=== PATIENT | female | born 1950 | race Caucasian/White ===

== ENCOUNTER → 2017-05-20 08:21 | Outpatient (CLI) | payer MEDICARE ==
[2011-03-01 06:15] VITALS: BMI 24.2
[~2017-05-20 08:21] MED LIST: ASPIRIN EC81 M1 PO; BREO ELLIPTA 21 EACH; CALAN SR240 MG PO; COMBIVENT RESPIM4 GM INH; DIOVAN HCT 320/1 TAB PO; GLEEVEC100 MG PO; METOPROLOL TAR100 M1 PO; NORMODYNE / TR300 MG PO; OMEPRAZOLE20 M1 PO; PLAQUENIL200 MG PO; PLAVIX75 MG PO
[2017-07-13 09:57] VITALS: BMI 25.9
== END | disposition home or self-care (01) ==
LOC: D.CT 05-19 08:30
DX: I10 Essential (primary) hypertension (principal)

== ENCOUNTER 2017-06-06 10:49 | Outpatient (CLI) | payer MEDICARE ==
[~2017-06-06] VITALS: Ht 152.4 cm; Wt 57.7 kg
--- NOTE | ~2017-06-06 | HEMODYNAMI ---
PATIENT:NANCY MAR MEDICAL RECORD: [id number] : 54 LOCATION:[facility] ADMISSION DATE: 06/06/17 Generatedon:06/06/201714:28 Patient name: NANCY MAR Patient #: [id number] SSN: : 1950 Date of study: 06/06/2017 Page: Of Hemodynamic Procedure Report Patient Data Patient Demographics Procedure consent was obtained First Name: NANCY Gender: Female Last Name: ZAID : 1950 Middle Initial: J Age: 66 year(s) Patient #: [id number] Race: Unknown Additional ID: [id number] Contact details [address]: [address] [place] [address] State: [place] City: [place] Zip code: [address] Past Medical History Allergies Allergen Reaction Date Comments Reported Other allergy 06/06/2017 SULFA, CODEINE Admission Admission Data Admission Date: 06/06/2017 Admission Time: 10:49 Height (in.): 5 BSA: 0.25 (m2) Height (cm.): 12.7 BMI: 3571.59 (kg/m2) Weight (lbs.): 127 Weight (kg.): 57.61 Lab Results Lab Result Date: 06/06/2017 Lab Result Time: 0:00 Biochemistry Name Units Result Min Max BUN mg/dl 16 --(---*)-- 7 18 Creatinine mg/dl 0.7 --(*---)-- 0.6 1.3 CBC Name Units Result Min Max Hemoglobin g/dl 13.4 -*(----)-- 13.5 17.5 Procedure Procedure Types Cath Procedure Diagnostic Procedure C [facility] w/Coronaries Sedation Charges Moderate Sedation up to 30 minutes PCI Procedure Coronary Stent Coronary Stent Initial Peripheral Cath Diagnostic Procedure Cath Peripheral Dufzg-Znyslkq-Rio-Off Procedure Description Procedure Date Procedure Date: 06/06/2017 Procedure Start Time: 13:55 Procedure End Time: 14:26 Procedure Staff Name Function Joe Gavin MD Performing Physician Domi Guzman RT Monitor Elliot Viera RN Nurse Erica Horton RT Scrub Procedure Data Cath Procedure Fluoroscopy Diagnostic fluoroscopy Total fluoroscopy Time: 4.9 time: 4.9 min min Diagnostic fluoroscopy Total fluoroscopy dose: 349 dose: 349 mGy mGy Contrast Material Contrast Material Type Amount (ml) Isovue 300 147 Entry Location Entry Primary Successful Side Size Upsize Upsize Entry Closure Succes sful Closure Location (Fr) 1 (Fr) 2 (Fr) Remarks Device Remarks Femoral Left 5 Fr 6 Fr Exoseal artery Short Estimated blood loss: 10 ml Diagnostic catheters Device Type Used For End Catheter Placement MULTIPACK JL 4.0 5Fr Left Coronary catheter Angiography MULTIPACK 3DRC 5Fr Right Coronary catheter Angiography MULTIPACK Pigtail 5 Fr LV Angiography catheter MULTIPACK Pigtail 5 Fr Abdominal catheter aortogram with runoff Procedure Complications No complications Procedure Medications Medication Administration Route Dosage Oxygen NC 2 l/min Heparin Flush Bag added to field 2 bags (1000units/500ml NS) 0.9% NaCl I.V. 100 ml/hr Fentanyl I.V. 50 mcg Versed I.V. 1 mg Fentanyl I.V. 50 mcg Versed I.V. 1 mg Fentanyl I.V. 50 mcg Versed I.V. 1 mg Fentanyl I.V. 50 mcg Heparin Bolus I.V. 6000 units Brilinta P.O. 180 mg Hemodynamics Rest BSA: 0.25 (m2) HGB: 13.4 (g/dl) O2 Consumption: Estimated: 23.53 (ml/min) O2 Con sumption indexed: Estimated:94.12 (ml/min/m) Heart Rate: 71 (bpm) Pressure Samples Time Site Value (mmHg) Purpose Heart Use Rate(bpm) 14:02 LV 165/5,20 EDP 70 14:03 AO 148/66(95) Pullback 73 14:03 LV 150/6,21 Pullback 73 Gradients Valve Time Site 1 Site 2 Mean SEP/DFP Peak To Heart Use (mmHg) (sec/min) Peak Rate (mmHg) (bpm) Aortic 14:03 LV AO 11 20 2 73 150/6,21 148/66(95) Calculations Valve P-P Mean Valve Index Valve Source Name Gradient Area Flow (cm2) Aortic 2 11 2 11 Snapshots Pre Cath Intra NCS Post Cath Vital Signs Time Heart Resp SPO2 etCO2 NIBP (mmHg) Rhythm Pain Sedation Rate (ipm) (%) (mmHg) Status Level (bpm) 13:38:14 75 15 100 10.3 214/79(128) NSR 0 (11) 10(A) , No pain 13:43:17 65 15 100 9.6 215/82(166) NSR 0 (11) 9(A) , No pain 13:48:10 64 16 97 0 153/64(110) NSR 0 (11) 9(A) , No pain 13:57:43 66 17 82 0 144/58(87) NSR 0 (11) 9(A) , No pain 14:02:26 69 17 89 8.8 112/66(102) NSR 0 (11) 9(A) , No pain 14:07:41 72 16 96 1.4 131/69(90) NSR 0 (11) 9(A) , No pain 14:12:24 68 15 99 9.6 115/55(100) NSR 0 (11) 9(A) , No pain 14:17:07 72 17 99 8.1 114/46(101) NSR 0 (11) 9(A) , No pain 14:22:28 76 16 100 3.6 155/63(107) NSR 0 (11) 10(A) , No pain Medications Time Medication Route Dose Verified Delivered Reason Notes Effectiveness by by 13:39:08 Oxygen NC 2 Joe Elliot Per physician l/min Romaine Viera RN 13:39:17 Heparin Flush added 2 Joe Elliot used for Bag to bags Romaine Viera ice cream freezer helper (1000units/500ml field NS) 13:39:26 0.9% NaCl I.V. 100 Joe Elliot Per physician ml/hr Romaine Viera RN 13:40:45 Fentanyl I.V. 50 Joe Elliot for sedation mcg Romaine Viera RN 13:40:52 Versed I.V. 1 mg Joe Elliot for sedation Romaine Viera RN 13:51:21 Fentanyl I.V. 50 Joe Elliot for sedation mcg Romaine Viera RN 13:51:25 Versed I.V. 1 mg Joe Elliot for sedation Romaine Viera RN 13:54:00 Fentanyl I.V. 50 Joe Elliot for sedation mcg Romaine Viera RN 13:57:06 Versed I.V. 1 mg Joe Zarate for sedation Romaine Viera RN 14:09:37 Fentanyl I.V. 50 Joe Zarate for sedation [facility] Romaine Viera RN 14:11:20 Heparin Bolus I.V. 6000 Joe Zarate for units Romaine Viera RN anticoagulation 14:27:21 Brilinta P.O. 180 Joe Zarate for mg Romaine Viera RN antiplatelet therapy Procedure Log Time Note 12:53:30 Patient Height : 5 inches 12:53:33 Patient Weight : 127 lbs 12:53:53 Patient allergic to Other allergySULFA, CODEINE 12:54:33 Lab Result : BUN 16 mg/dl 12:54:33 Lab Result : Creatinine 0.7 mg/dl 12:54:33 Lab Result : Hemoglobin 13.4 g/dl 13:10:36 Erica Horton RT(R) sent for patient. Start room use. 13:20:14 Time tracking: Regular hours 13:20:18 Plan of Care:Hemodynamics will remain stable., Cardiac rhythm will remain stable., Comfort level will be maintained., Respiratory function will remain adequate., Patient/ family verbilizes understanding of procedure., Procedure tolerated without complication., Recovers from procedure without complications.. 13:23:40 Patient received from Pre/Post Procedure Room to CCL 1 Alert and oriented. Tansferred to table in Supine position. 13:23:41 Warm blankets applied, and lino hugger turned on for patient comfort. 13:23:41 Correct patient and procedure confirmed by team. 13:23:42 Signed procedure consent form obtained from patient. 13:23:43 ECG and BP/O2 sat monitors applied to patient. 13:23:44 Full Disclosure recording started 13:36:18 Vital chart was started 13:36:21 Rhythm: sinus rhythm 13:36:30 H&P Date Dictated: 05/27/2017 Within 30 days and on chart., H&P Addendum completed by physician on day of procedure. (MUST COMPLETE FOR ALL OUTPATIENTS). 13:36:32 Pre-procedure instructions explained to patient. 13:36:32 Pre-op teaching completed and patient verbalized understanding. 13:36:34 Family in patients room. 13:36:40 Patient NPO since Midnight. 13:36:48 Is the patient allergic to Iodine/contrast media? No. 13:36:50 Is patient on blood thinner?No 13:36:52 Patient diabetic? No. 13:36:54 Previous problem with sedation/anesthesia? No ? 13:36:56 Snore? No 13:36:57 Sleep apnea? No 13:36:58 Deviated septum? No 13:36:58 Opens mouth fully? Yes 13:36:59 Sticks out tongue? Yes 13:37:01 Airway obstruction? No ? 13:37:03 Dentures? No ? 13:37:08 Pre procedure: right dorsailis pedis pulse 1+ Palpable, but thready & weak; easily obliterated 13:37:11 Pre procedure: left dorsailis pedis pulse 2+ Normal; easily identifiable; not easily obliterated 13:37:14 Patient pain scale 0/10 ?. 13:37:25 IV patent on arrival in left hand with 0.9% NaCl at [facility]. 13:37:27 Lab results completed and on chart. 13:37:44 Bilateral groins area was prepped with chlora-prep and draped in sterile fashion 13:37:45 Alarms reviewed by R. N. 13:37:45 Sharps counted by scrub and verified by R.N. 13:37:48 Use device set Femoral Dx 13:37:48 ACIST Syringe (10677) opened to sterile field. 13:37:49 Bag Decanter (2002) opened to sterile field. 13:37:49 Medline Cath Pack ([id number]) opened to sterile field. 13:37:50 DIAGNOSTIC WIRE .035 260cm J wire (860537) opened to sterile field. 13:37:54 ACIST Hand Control (32014) opened to sterile field. 13:37:54 ACIST Manifold (72801) opened to sterile field. 13:37:55 DIAGNOSTIC Multipack 5Fr catheter set (ON1779) opened to sterile field. 13:37:56 Tegaderm 4 x 4 (1626W) opened to sterile field. 13:37:56 PERCUTANEOUS ENTRY 19GA needle opened to sterile field. 13:39:08 Oxygen 2 l/min NC was administered by Elliot Viera RN; Per physician; 13:39:17 Heparin Flush Bag (1000units/500ml NS) 2 bags added to field was administered by Elliot Viera RN; used for procedure; 13:39:26 0.9% NaCl 100 ml/hr I.V. was administered by Elliot Viera RN; Per physician; :39:26 SHEATH 5Fr Prelude ([id number]) opened to sterile field. 13:40:26 Final Timeout: patient, procedure, and site verified with staff and physician. All members of the team are in agreement. 13:40:28 Right groin site verified by team. 13:40:30 Physical assessment completed. ASA score P 2 - A patient with mild systemic disease as per Joe Gavin MD. 13:40:33 Sedation plan: IV Moderate Sedation Medication:Versed, Fentanyl 13:40:45 Fentanyl 50 mcg I.V. was administered by Elliot Viera RN; for sedation; 13:40:52 Baseline sample Acquired. 13:40:52 Versed 1 mg I.V. was administered by Elliot Viera RN; for sedation; 13:46:47 Zero performed for pressure channel P1 13:51:21 Fentanyl 50 mcg I.V. was administered by Elliot Viera RN; for sedation; 13:51:25 Versed 1 mg I.V. was administered by Elliot Viera RN; for sedation; 13:54:00 Fentanyl 50 mcg I.V. was administered by Elliot Viera RN; for sedation; 13:54:17 Procedure started. 13:55:18 Local anesthetic to left femerol artery with Lidocaine 2% by Joe Gavin MD.INITIAL ACCESS ONLY 13:56:39 A 5 Fr sheath was inserted into the Left Femoral artery 13:57:06 Versed 1 mg I.V. was administered by Elliot Viera RN; for sedation; 13:57:28 A MULTIPACK JL 4.0 5Fr catheter was advanced over the wire and used for Left Coronary Angiography. 14:00:10 Catheter removed. 14:00:16 A MULTIPACK 3DRC 5Fr catheter was advanced over the wire and used for Right Coronary Angiography. 14:01:38 Catheter removed. 14:01:47 A MULTIPACK Pigtail 5 Fr catheter was advanced over the wire and used for LV Angiography. 14:03:02 LV gram done using PADRON 14:03:05 Injector settings: Ml/sec: 10, Volume: 20, 14:03:06 LV hemodynamics recorded. 14:03:10 EF : 60 % 14:03:33 Catheter removed. 14:03:45 A MULTIPACK Pigtail 5 Fr catheter was advanced over the wire and used for Abdominal aortogram with runoff. 14:07:18 Use device set GAVIN PCI 14:07:20 SHEATH 6FR Satanta (KHS400) opened to sterile field. 14:07:23 BMW 300cm Ash 2 J wire ([id number]) opened to sterile field. 14:07:25 GUIDE 6FR XBLAD 3.5 catheter ([id number]) opened to sterile field. 14:07:32 Catheter removed. 14:09:13 Sheath upsized to a 6 Fr Short. 14:09:31 6 Fr XBLAD 3.5 guide catheter was inserted over the wire 14:09:37 Fentanyl 50 mcg I.V. was administered by Elliot Viera RN; for sedation; 14:10:03 TUBING High Pressure Extension Tubing (Agency Spotter) ([id number]) opened to sterile field. 14:11:20 Heparin Bolus 6000 units I.V. was administered by Elliot Viera RN; for anticoagulation; 14:12:25 BMW wire advanced. 14:16:27 Inflation Number: 1 A INTEGRITY OTW 3.0 X 15 stent ([id number]) was prepped and advanced across the Mid LAD. The stent was deployed at 13 KARLEE for 0:32 (min:sec). 14:18:13 Stent catheter was removed intact over wire. 14:18:14 Wire removed. 14:18:15 Guide catheter removed. 14:18:25 Sheath removed intact; hemostasis achieved with Exoseal to the Left Femoral artery. 14:18:28 EXOSEAL 6Fr (EX600) opened to sterile field. 14:18:31 Procedure ended.(Physican Out) 14:18:44 Fluoroscopy time 04.90 minutes. 14:18:48 Flurop Dose total: 349 14:18:48 Fluoroscopy dose: 349 mGy 14:18:51 Contrast amount:Isovue 300 147ml. 14:18:57 Sharps counted by scrub and verified by R.N. 14:18:58 Insertion/operative site no bleeding no hematoma. 14:19:31 Post-op/insertion site Left Femoral artery dressed using a 4 x 4 and Tegaderm. 14:19:36 Post left femerol artery:stable, clean and dry 14:19:49 Post Procedure Pulses reassessed and unchanged 14:19:51 Post-procedure physical assessment completed. ASA score P 2 - A patient with mild systemic disease as per Joe Gavin MD. 14:19:53 Post procedure rhythm: unchanged. 14:19:58 Estimated blood loss: 10 ml 14:19:59 Post procedure instruction explained to patient.Patient verbalizes understanding. 14:20:00 Patient needs reinforcement of post procedure teaching. 14:20:13 Procedure type changed to Cath procedure, Diagnostic procedure, LHC, LHC w/Coronaries, Sedation Charges, Moderate Sedation up to 30 minutes, PCI procedure, Coronary Stent, Coronary Stent Initial, Peripheral Cath Diagnostic Procedure, Cath Peripheral, Ydgou-Hjeyxby-Ogg-Off 14:20:18 Procedure Complication : No complications 14:25:53 Procedure and supply charges have been captured, reviewed, submitted and are correct. 14:25:54 See physician's report for complete and final results. 14:25:56 Vital chart was stopped 14:25:58 Report given to Pre/Post Procedure Room. 14:26:01 Patient transfered to Pre/Post Procedure Room with Stretcher. 14:26:08 Procedure ended. 14:26:08 Full Disclosure recording stopped 14:26:12 End room use (Document Last) 14:27:21 Brilinta 180 mg P.O. was administered by Elliot Viera RN; for antiplatelet therapy; Intervention Summary Intervention Notes Time ActionType Lesion and Equipment Action# Pressure Duration Attributes Used 14:16:27 Place stent Mid LAD INTEGRITY 1 13 00:32 OTW 3.0 X 15 stent ([id number]) Device Usage Item Name Manufacture Quantity Catalog Hospital Part Current Minimal Lot# / Number Charge Number Stock Stock Serial# Code ACIST Acist 1 27317 486806 744873 678124 20 Syringe Medical (25774) Systems Inc Bag Decanter Microtek 1 158947 16039 625345 5 () Medical Inc. Medline Cath Cardinal 1 [id number] 642876 55209 135709 5 Brandwatch ([id number]) DIAGNOSTIC St Nic 1 002919 118074 758837 571308 30 WIRE .035 260cm J wire (169042) ACIST Hand Acist 1 35431 955505 186206 530034 5 Control Medical (41751) Systems Inc ACIST Acist 1 23922 709941 313340 832921 5 Manifold Medical (74634) Systems Inc DIAGNOSTIC Cardinal 1 NL2625 040103 35945 056919 30 Multipack Health 5Fr catheter set (JE5084) Tegaderm 4 x 3M 1 1626W 871757 233577 561794 5 4 (1626W) PERCUTANEOUS Cook Medical 1 S12141 780861 939399 5 ENTRY 19GA needle SHEATH 5Fr Merit 1 [id number] 065726 297143 202419 5 Prelude Medical ([id number]) MULTIPACK JL Cardinal 1 918251 5 4.0 5Fr Health catheter MULTIPACK Cardinal 1 843262 5 3DRC 5Fr Health catheter MULTIPACK Cardinal 1 126449 5 Pigtail 5 Fr Health catheter SHEATH 6FR Terumo 1 QMN048 489656 993239 665356 40 Satanta (WJX282) BMW 300cm Darden 1 [id number] 055361 003753 721402 5 Ash 2 Vascular J wire ([id number]) GUIDE 6FR Cardinal 1 [id number] 340796 417613 173916 10 XBLAD 3.5 Health catheter (47456746) TUBING High Merit 1 [id number] 197431 77889 932011 10 Pressure Medical Extension Tubing (Gavin) ([id number]) INTEGRITY Medtronic 1 [id number] 281474 615009 1 [id number] OTW 3.0 X 15 stent ([id number]) EXOSEAL 6Fr Cardinal 1 EX600 832008 395280 575602 10 (EX600) Health Signature Audit [place] Stage Time Signature Unsigned Intra-Procedure 06/06/2017 Domi 2:28:31 PM Counts RT(R) Signatures Monitor : Domi Signature : Counts RT Date : Time : [place] [id number] [place] [address]
[2017-06-06] MEDS ORDERED: PLAQUENIL200 MG PO (11:09)
[2017-06-06] MEDS ORDERED: OMEPRAZOLE20 M1 PO (11:09)
[2017-06-06] MEDS ORDERED: COMBIVENT RESPIM4 GM INH (11:10)
[2017-06-06] MEDS ORDERED: DIOVAN HCT 320/1 TAB PO (11:11)
[2017-06-06] MEDS ORDERED: CALAN SR240 MG PO (11:11)
[2017-06-06] MEDS ORDERED: METOPROLOL TAR100 M1 PO (11:11)
[2017-06-06] MEDS ORDERED: GLEEVEC100 MG PO (11:12)
[2017-06-06 11:26] VITALS: BP 215/78; Ht 152.4 cm; Wt 57.7 kg
[2017-06-06 12:04] LABS: BASOPHILS 0.4 % (0-2); EOSINOPHILS 1.2 % (0-7); HEMATOCRIT 39.6 % (36.0-48.0); HEMOGLOBIN 13.4 g/dL (12-16); IMMATURE GRANULOCYTES 0.2 % (0-5); MCH 32.1 pg (26.0-34.0); MCHC 33.8 g/dL (31.0-37.0); MCV 94.7 fL (80.0-100.0); MEAN PLATELET VOLUME 11.1 fL (7.4-10.4); MONOCYTES 8.9 % (2-11); NEUTROPHILS 59.3 % (40-80); RBC 4.18 10x6/uL (4.00-5.40); RDW 12.8 % (11.5-14.5); WBC 4.8 10x3/uL (4.8-10.8)
[2017-06-06 12:07] LABS: PLATELET COUNT 221 10x3/uL (130-400)
[2017-06-06 12:14] LABS: CALC OSMOLALITY 279 mosm/kg (275-300); CALCIUM 8.9 mg/dL (8.5-10.1); CARBON DIOXIDE 28.2 mmol/L (21.0-32.0); CHLORIDE - SERUM 102 mmol/L (98-107); CREATININE - SERUM 0.7 mg/dL (0.6-1.3); GLUCOSE 97 mg/dL (74-106); SODIUM 140 mmol/L (136-145); UREA NITROGEN 16 mg/dL (7-18); eGFR NON AFRICAN AMERICAN 89 mL/min (90-120)
[2017-07-11] MEDS ORDERED: NORMODYNE / TR300 MG PO (11:01)
[2017-07-11] MEDS ORDERED: GLEEVEC100 MG PO (11:02)
[2017-07-11] MEDS ORDERED: BREO ELLIPTA 21 EACH (11:05)
[2017-07-11] MEDS ORDERED: COMBIVENT RESPIM4 GM INH (11:06)
[2017-07-11] MEDS ORDERED: ASPIRIN EC81 M1 PO (11:07)
[2017-07-11] MEDS ORDERED: PLAVIX75 MG PO (11:08)
== END 2017-06-06 17:10 | disposition home or self-care (01) ==
LOC: D.CATH 10:49
PROVIDERS: Internal Medicine Cardiovascular Disease
DX: I25.119 Atherosclerotic heart disease of native coronary artery with unspecified angina pectoris (principal); I70.219 Atherosclerosis of native arteries of extremities with intermittent claudication, unspecified extremity; I10 Essential (primary) hypertension; Z01.812 Encounter for preprocedural laboratory examination

== ENCOUNTER 2017-07-12 05:00 | Inpatient (IN) | payer MEDICARE, OTHER ==
[2017-07-11 12:05] LABS: BASOPHILS 0.7 % (0-2); EOSINOPHILS 2.5 % (0-7); HEMATOCRIT 40.1 % (36.0-48.0); HEMOGLOBIN 13.5 g/dL (12-16); LYMPHOCYTES 34.8 % (15-50); MCH 32.5 pg (26.0-34.0); MCHC 33.7 g/dL (31.0-37.0); MCV 96.4 fL (80.0-100.0); MEAN PLATELET VOLUME 10.2 fL (7.4-10.4); MONOCYTES 7.8 % (2-11); NEUTROPHILS 54.2 % (40-80); PLATELET COUNT 263 10x3/uL (130-400); RBC 4.16 10x6/uL (4.00-5.40); RDW 13.4 % (11.5-14.5); WBC 4.3 10x3/uL (4.8-10.8)
[2017-07-11 12:20] LABS: ALKALINE PHOSPHATASE 82 U/L (46-116); ALT (SGPT) 49 U/L (10-68); CALC OSMOLALITY 277 mosm/kg (275-300); CALCIUM 8.7 mg/dL (8.5-10.1); CARBON DIOXIDE 29.4 mmol/L (21.0-32.0); CHLORIDE - SERUM 104 mmol/L (98-107); CREATININE - SERUM 0.7 mg/dL (0.6-1.3); GLUCOSE 89 mg/dL (74-106); POTASSIUM - SERUM 3.7 mmol/L (3.5-5.1); SODIUM 140 mmol/L (136-145); UREA NITROGEN 12 mg/dL (7-18); eGFR NON AFRICAN AMERICAN 89 mL/min (90-120)
[2017-07-11 12:22] LABS: APPEARANCE CLEAR (CLEAR); BILIRUBIN NEGATIVE (NEGATIVE); COLOR YELLOW (YELLOW); GLUCOSE NEGATIVE (NEGATIVE); KETONE NEGATIVE (NEGATIVE); NITRITE NEGATIVE (NEGATIVE); PROTEIN NEGATIVE (NEGATIVE); UROBILINOGEN NORMAL (NORMAL)
[2017-07-11 12:24] LABS: BACTERIA MODERATE /hpf (NONE SEEN); EPITHELIAL CELLS 0-5 /hpf (0-5); MUCUS <1+ /lpf (NONE SEEN); WHITE CELLS - URINE 0-5 /hpf (0-5)
[2017-07-11 12:38] LABS: INR 1.08 (0.85-1.17); PROTIME 13.6 SECONDS (11.6-15.0)
[2017-07-11 12:39] LABS: APTT 26.6 SECONDS (22.8-39.4)
[~2017-07-12] VITALS: Ht 152.4 cm; Wt 60.3 kg
[2017-07-12] VITALS (51 sets, daily range): BP systolic 113–233; BP diastolic 41–89; BMI 24.6; BMI 26.0
--- NOTE | ~2017-07-12 | OP ---
PATIENT NAME: NANCY MAR MEDICAL RECORD: [id number] :54 LOCATION:D.CVI D.CV02 ADMISSION DATE:07/12/17 SURGEON: JORDAN HA MD DATE OF OPERATION: 07/12/2017 SURGEON: Jordan Ha MD CONSUMER SALES REPRESENTATIVE: ROCHELLE Gallo OPERATION PERFORMED: 1. Right femoral cutdown. 2. Left common femoral artery ultrasound access, micropuncture. 3. Right iliac angioplasty. 4. Bilateral iliac stents. 5. Aortogram with runoff. 6. Percutaneous closure, left femoral artery with Angio-Seal. 7. Left iliac angiogram. 8. Primary closure, right common femoral artery. PREOPERATIVE DIAGNOSES: Bilateral iliac and distal aortic stenosis, symptomatic. POSTOPERATIVE DIAGNOSES: Bilateral iliac and distal aortic stenosis, symptomatic. ANESTHESIA: General endotracheal anesthesia. ESTIMATED BLOOD LOSS: 20 cc. SPECIMENS: None. COMPLICATIONS: None. CONDITION: Stable. DISPOSITION: CV ICU. OPERATIVE FINDINGS: 1. Cutdown on the right common femoral artery which had circumferential plaque starting at about the mid vessel and extending down into the superficial femoral artery, superficial femoral and 2 large profunda branches were encircled and the proximal extent of the dissection went up to behind the inguinal ligament to allow proximal control, at the access site, this was a relatively normal vessel about 6 mm in size. 2. Ultrasound access of the left common femoral artery without difficulty using micropuncture technique and a ProGlide was placed, but was not deployed as we could not get good blood return, presumably due to the small vessel size on the left. At the conclusion of the case, this side was closed with an Angio-Seal and a completion angiogram revealed no stenosis. 3. Wire accessed easily through the common iliac on the right. Sequential dilators passed in the external iliac to 14-[place] and then balloon angioplasty, first with a 7-mm, then 8 mm right iliac, but unable to pass the AFX system through the right. 4. Procedure converted to bilateral iliac stents using covered 8 and 7 x 38 mm stents deployed without difficulty, simultaneously and bilaterally. OPERATIVE REPORT [id number] ZAIDNANCY Sanchez 5. Aortogram with good seating and good runoff aspirating the sheaths on both sides. 6. Percutaneous closure of the left aorta and left iliac angiogram. 7. Primary closure on the right. 8. Good Doppler posterior tibial and dorsalis pedis bilaterally. OPERATIVE INDICATION: Claudication. PROCEDURE NOTE IN DETAIL: The patient was brought to the operating suite. General anesthesia was obtained. Cutdown made in the right groin crease, taken down to the artery, which was dissected out with vessels and circled on the left. Percutaneous access was obtained with ultrasound guidance. Heparin was given, after heparin had circulated, the right groin was also accessed and a sheath was placed. Procedure as above with first placement of a wire, then sequential dilators and then 7, but the AFX would not pass, then an 8 and the AFX still would not pass on the right. Therefore, procedure converted to bilateral iliac stenting and 8 x 38 iCAST and 7 x 38 on the left deployed easily. Good flow when aspirating the sheaths, which at that point were 8 on the right and a 7 on the left. Pigtail then moved to the left and switched for a soft wire after the previous stiff wire and the left side closed with an Angio-Seal. Good flow on the completion angiogram. Devices removed from the right and primary interrupted closure. Good flow noted, thorough irrigation. Marcaine applied. Three layer closure. Dermabond on the skin. Good Doppler pulses into the CV ICU in good condition. TRANSINT:[id number] Voice Confirmation ID: [id number] DOCUMENT ID: [id number] JORDAN HA MD at 1620 CC: LING PHAM M.D. [id number] DICTATION DATE: 07/12/17 1148 TECHNOLOGIST INFECTIOUS DISEASE: 07/12/17 1258 DIS IN 07/13/17 [facility] [address] [place] [address]
[2017-07-13] VITALS (10 sets, daily range): BP systolic 121–160; BP diastolic 37–60; Ht 152.4 cm; Wt 60.3 kg
[2017-07-13 06:13] LABS: HEMATOCRIT 32.1 % (36.0-48.0); MCH 31.5 pg (26.0-34.0); MCHC 32.7 g/dL (31.0-37.0); MCV 96.4 fL (80.0-100.0); MEAN PLATELET VOLUME 10.2 fL (7.4-10.4); RBC 3.33 10x6/uL (4.00-5.40); RDW 13.7 % (11.5-14.5); WBC 5.1 10x3/uL (4.8-10.8)
[2017-07-13 06:18] LABS: HEMOGLOBIN 10.5 g/dL (12-16)
[2017-07-13 06:46] LABS: CALC OSMOLALITY 279 mosm/kg (275-300); CALCIUM 7.5 mg/dL (8.5-10.1); CARBON DIOXIDE 27.8 mmol/L (21.0-32.0); CHLORIDE - SERUM 106 mmol/L (98-107); CREATININE - SERUM 0.6 mg/dL (0.6-1.3); GLUCOSE 96 mg/dL (74-106); POTASSIUM - SERUM 3.4 mmol/L (3.5-5.1); SODIUM 141 mmol/L (136-145); UREA NITROGEN 9 mg/dL (7-18); eGFR NON AFRICAN AMERICAN > 90 mL/min (90-120)
== END 2017-07-13 11:35 | disposition home or self-care (01) | DRG 254 ==
LOC: D.SDCHOLD 05:00 → D.CVICU 05:00 → D.SDCHOLD 07:30 → D.CVICU 09:34
PROVIDERS: Internal Medicine Cardiovascular Disease; Thoracic Surgery (Cardiothoracic Vascular Surgery)
PROC: 047C0DZ Dilation of Right Common Iliac Artery with Intraluminal Device, Open Approach (ICD-10-PCS; 2017-07-12)
PROC: 047D0DZ Dilation of Left Common Iliac Artery with Intraluminal Device, Open Approach (ICD-10-PCS; principal; 2017-07-12 07:30)
DX: I70.202 Unspecified atherosclerosis of native arteries of extremities, left leg (principal); I70.291 Other atherosclerosis of native arteries of extremities, right leg

== ENCOUNTER → 2017-10-31 07:09 | Outpatient (CLI) | payer MEDICARE, OTHER ==
[2017-07-13 09:57] VITALS: BMI 25.9
== END | disposition home or self-care (01) ==
LOC: D.US 07:09
DX: I73.9 Peripheral vascular disease, unspecified (principal); M79.605 Pain in left leg; M79.604 Pain in right leg

== ENCOUNTER → 2017-12-01 08:55 | Outpatient (CLI) | payer MEDICARE, OTHER ==
[2017-07-13 09:57] VITALS: BMI 25.9
[2017-12-01 09:36] LABS: CREATININE - SERUM 0.8 mg/dL (0.6-1.3)
== END | disposition home or self-care (01) ==
LOC: D.CT 08:55
PROVIDERS: Internal Medicine Cardiovascular Disease
DX: I73.9 Peripheral vascular disease, unspecified (principal)

== ENCOUNTER → 2018-07-17 10:54 | Outpatient (CLI) | payer MEDICARE, OTHER ==
[2017-07-13 09:57] VITALS: BMI 25.9
== END | disposition home or self-care (01) ==
LOC: D.US 10:54
PROVIDERS: ATTEND Thoracic Surgery (Cardiothoracic Vascular Surgery)
DX: I73.9 Peripheral vascular disease, unspecified (principal); M79.605 Pain in left leg; M79.604 Pain in right leg

== ENCOUNTER → 2018-11-15 09:47 | Outpatient (CLI) | payer MEDICARE, OTHER ==
[2017-07-13 09:57] VITALS: BMI 25.9
== END | disposition home or self-care (01) ==
LOC: D.RAD 11-08 09:00
PROVIDERS: ATTEND Internal Medicine Gastroenterology
DX: K21.9 Gastro-esophageal reflux disease without esophagitis (principal)

== ENCOUNTER → 2019-02-08 10:27 | Outpatient (CLI) | payer MEDICARE, OTHER ==
[2017-07-13 09:57] VITALS: BMI 25.9
== END | disposition home or self-care (01) ==
LOC: D.HCCARDIO 10:27
PROVIDERS: ATTEND Internal Medicine Cardiovascular Disease
DX: I25.10 Atherosclerotic heart disease of native coronary artery without angina pectoris (principal)

== ENCOUNTER 2019-04-02 10:48 | Outpatient (CLI) | payer MEDICARE, OTHER ==
[~2019-04-02] VITALS: Ht 152.4 cm; Wt 58.2 kg
--- NOTE | ~2019-04-02 | HEMODYNAMI ---
PATIENT:NANCY MAR MEDICAL RECORD: [id number] : 54 LOCATION:[facility] ADMISSION DATE: 04/02/19 Generatedon:04/02/201914:31 Patient name: NANCY MAR Patient #: [id number] SSN: [id number] : 1950 Date of study: 04/02/2019 Page: Of Hemodynamic Procedure Report Patient Data Patient Demographics Procedure consent was obtained First Name: NANCY Gender: Female Last Name: ZAID : 1950 [facility] Initial: Laura Age: 68 year(s) Patient #: [id number] Race: Unknown SSN: [id number] Additional ID: [id number] Contact details [address]: [address] [place] [address] State: [place] City: [place] Zip code: [address] Past Medical History Allergies Allergen Reaction Date Comments Reported Other allergy 06/06/2017 SULFA, CODEINE Other allergy 04/02/2019 Sulfa, Codeine Admission Admission Data Admission Date: 04/02/2019 Admission Time: 10:48 Arrival Date: 04/02/2019 Arrival Time: 0:00 Insurance Payor: Private health insurance [facility] #: [id number] Height (in.): 59.84 BSA: 1.54 (m2) Height (cm.): 152 BMI: 25.1 (kg/m2) Weight (lbs.): 127.87 Weight (kg.): 58 Lab Results Lab Result Date: 04/02/2019 Lab Result Time: 0:00 Biochemistry Name Units Result Min Max BUN mg/dl 16 --(---*)-- 7 18 Creatinine mg/dl 0.6 --(*---)-- 0.6 1.3 CBC Name Units Result Min Max Hemoglobin g/dl 13.6 --(*---)-- 13.5 17.5 Procedure Procedure Types Cath Procedure Diagnostic Procedure C [facility] w/Coronaries Sedation Charges Moderate Sedation up to 15 minutes Procedure Description Procedure Date Procedure Date: 04/02/2019 Procedure Start Time: 14:06 Procedure End Time: 14:22 Procedure Staff Name Function Tacos Parr RN Area Field Person Joe Gavin MD Performing Physician Josefina Thompson RT Monitor Brenna Siddiqi RT Scrub Indication Chest pain Chest discomfort Procedure Data Cath Procedure Fluoroscopy Diagnostic fluoroscopy Total fluoroscopy Time: 2.6 time: 2.6 min min Diagnostic fluoroscopy Total fluoroscopy dose: 253 dose: 253 mGy mGy Contrast Material Contrast Material Type Amount (ml) Isovue 300 55 Entry Location Entry Primary Successful Side Size Upsize Upsize Entry Closure Joel ccessful Closure Location (Fr) 1 (Fr) 2 (Fr) Remarks Device Remarks Radial Right 5 Fr Mechanical artery Compression Estimated blood loss: 5 ml Diagnostic catheters Device Type Used For End Catheter Placement DIAGNOSTIC Vinicius 110cm Procedure 5Fr catheter ([id number]) Procedure Complications No complications Procedure Medications Medication Administration Route Dosage Oxygen etCO2 Nasal cannula 2 l/min Lidocaine 2% added to field 20 Heparin Flush Bag added to field 2 bags (1000units/500ml NS) 0.9% NaCl I.V. 100 ml/hr Zofran I.V. 4 mg Radial Cocktail added to field 1 syringe (Verapamil 2mg/Nitro 400mcg/Heparin 1500units) Versed I.V. 2 mg Fentanyl I.V. 50 mcg Versed I.V. 2 mg Fentanyl I.V. 50 mcg Hemodynamics Rest HGB: 13.6 (g/dl) Heart Rate: 57 (bpm) Pressure Samples Time Site Value (mmHg) Purpose Heart Use Rate(bpm) 14:11 LV 142/2,11 Snapshot 69 14:11 LV 138/2,12 Snapshot 68 14:11 LV 157/2,13 Pullback 65 14:11 AO 152/50(86) Pullback 65 Gradients Valve Time Site 1 Site 2 Mean SEP/DFP Peak To Heart Use (mmHg) (sec/min) Peak Rate (mmHg) (bpm) Aortic 14:11 LV AO 11 6 5 65 157/2,13 152/50(86) Calculations Valve P-P Mean Valve Index Valve Source Name Gradient Area Flow (cm2) Aortic 5 11 5 11 Snapshots Pre Cath Intra NCS Post Cath Vital Signs Time Heart Resp SPO2 etCO2 NIBP (mmHg) Rhythm Pain Sedation Rate (ipm) (%) (mmHg) Status Level (bpm) 13:33:33 62 18 95 0 178/75(149) NSR 0 (11) 10(A) , No pain 13:45:22 56 15 98 33.9 159/62(105) NSR 0 (11) 10(A) , No pain 13:49:50 55 17 97 33.1 152/62(103) NSR 0 (11) 10(A) , No pain 13:55:16 56 17 98 33.9 160/69(119) NSR 0 (11) 10(A) , No pain 13:59:40 52 10 96 36.2 154/58(105) NSR 0 (11) 10(A) , No pain 14:04:04 51 14 97 43.7 142/52(92) NSR 0 (11) 10(A) , No pain 14:09:16 56 15 95 42.2 148/50(93) NSR 0 (11) 9(A) , No pain 14:13:42 56 14 94 46 130/48(95) NSR 0 (11) 9(A) , No pain 14:18:06 54 16 94 46 123/51(88) NSR 0 (11) 10(A) , No pain 14:22:22 55 8 96 45.9 135/62(110) NSR 0 (11) 10(A) , No pain 14:27:07 62 9 98 26.3 130/63(97) NSR 0 (11) 10(A) , No pain Medications Time Medication Route Dose Verified Delivered Reason Notes Effectiveness by by 13:28:20 Oxygen etCO2 2 l/min Joe Buffie Per Nasal Romaine Parr RN physician cannula 13:28:51 Lidocaine 2% added 20ml Joe Joe for local to vial Romaine Gavin MD anesthetic field 13:28:57 Heparin Flush added 2 bags Joe Joe used for Bag to Romaine Gavin MD procedure (1000units/500ml field NS) 13:29:16 0.9% NaCl I.V. 100 Joe Buffie Per ml/hr Romaine Parr RN physician 13:32:33 Zofran I.V. 4 mg Joe Buffie Per Romaine Parr RN physician 13:32:48 Radial Cocktail added 1 Joe Buffie for (Verapamil to syringe Romaine Parr RN vasodilation 2mg/Nitro field 400mcg/Hepari 14:03:23 Versed I.V. 2 mg Joekaycee Balderrama for sedation Romaine Parr RN 14:03:28 Fentanyl I.V. 50 mcg Joe Balderrama for sedation Romaine Parr RN 14:08:53 Versed I.V. 2 mg Joe Tacos for sedation Romaine Parr RN 14:08:57 Fentanyl I.V. 50 mcg Joe Balderrama for sedation Romaine Parr RN Procedure Log Time Note 12:23:58 Informed consent obtained and on chart 13:28:20 Oxygen 2 l/min etCO2 Nasal cannula was administered by Tacos Parr RN; Per physician; Verbal order read back and verified. 13:28:51 Lidocaine 2% 20ml vial added to field was administered by Jeo Gavin MD; for local anesthetic; Verbal order read back and verified. 13:28:57 Heparin Flush Bag (1000units/500ml NS) 2 bags added to field was administered by Joe Gavin MD; used for procedure; Verbal order read back and verified. 13:29:16 0.9% NaCl 100 ml/hr I.V. was administered by Tacos Parr RN; Per physician; Verbal order read back and verified. 13:30:24 Arrival Date: 04/02/2019 12:00:00 AM 13:30:28 Insurance Payor : Private health insurance 13:31:12 Patient Height : 59.84 inches 13:31:23 Patient Weight : 127.87 lbs 13:31:56 Indication : Chest pain 13:32:02 Indication : Chest discomfort 13:32:33 Zofran 4 mg I.V. was administered by Tacos Parr RN; Per physician; Verbal order read back and verified. 13:32:48 Radial Cocktail (Verapamil 2mg/Nitro 400mcg/Heparin 1500units) 1 syringe added to field was administered by Tacos Parr RN; for vasodilation; Verbal order read back and verified. 13:42:42 Procedure Status Elective Heart Cath (OP). 13:42:46 Tacos Parr RN sent for patient. Start room use. 13:42:47 Time tracking: Regular hours (M-F 7:00 - 5:00) 13:42:52 Plan of Care:Hemodynamics will remain stable., Cardiac rhythm will remain stable., Comfort level will be maintained., Respiratory function will remain adequate., Patient/ family verbilizes understanding of procedure., Procedure tolerated without complication., Recovers from procedure without complications.. 13:42:59 Patient received from Pre/Post Procedure Room to CCL 1 Alert and oriented. Tansferred to table in Supine position. 13:43:00 Warm blankets applied, and lino hugger turned on for patient comfort. 13:43:01 ECG and BP/O2 sat monitors applied to patient. 13:43:01 Correct patient and procedure confirmed by team. 13:43:03 Vital chart was started 13:43:04 Baseline sample Acquired. 13:43:11 Full Disclosure recording started 13:43:17 H&P Date Dictated: 04/02/2019 Within 30 days and on chart., H&P Addendum completed by physician on day of procedure. (MUST COMPLETE FOR ALL OUTPATIENTS). 13:43:22 Pre-procedure instructions explained to patient. 13:43:24 Family in waiting room. 13:43:26 Patient NPO since Midnight. 13:43:52 Patient allergic to Other allergySulfa, Codeine 13:43:58 Is the patient allergic to Iodine/contrast media? No. 13:44:00 Was the patient premedicated? Yes 13:44:04 Is patient on blood thinner?Yes 13:44:06 Patient diabetic? No. 13:44:12 Previous problem with sedation/anesthesia? Yes nausea 13:44:15 Snore? No 13:44:17 Sleep apnea? No 13:44:28 Patient pain scale 0/10 ?. 13:45:00 IV patent on arrival in left forearm with 0.9% NaCl at [facility]. 13:45:26 Lab Result : Hemoglobin 13.6 g/dl 13:45:26 Lab Result : Creatinine 0.6 mg/dl 13:45:26 Lab Result : BUN 16 mg/dl 13:45:31 Lab results completed and on chart. 13:46:01 Stress Test: yes; abnormal anterior 13:46:08 Right Radial & Right Groin area was prepped with chlora-prep and draped in sterile fashion 13:46:09 Alarms reviewed by R. N. 13:46:10 Sharps counted by scrub and verified by R.N. 13:46:11 Physician paged 13:46:43 1) 90+ Normal kidney functon but urine findings or structural abnormalities or genetic trait point to kidney disease. 13:46:48 Maximum allowable contrast dose (3.7 X eGFR X 0.75)249 ml. 13:46:54 Sedation plan: IV Moderate Sedation Medication:Versed, Fentanyl 13:47:02 Use device set Radial Dx or PCI 13:47:04 ACIST Syringe (70321) opened to sterile field. 13:47:05 Bag Decanter (2002S) opened to sterile field. 13:47:05 Medline Cath Pack ([id number]) opened to sterile field. 13:47:06 ACIST Hand Control (65080) opened to sterile field. 13:47:07 Tegaderm 4 x 4 (1626W) opened to sterile field. 13:47:07 ACIST Manifold (44791) opened to sterile field. 13:47:09 MBrace Wrist Support ([id number]) opened to sterile field. 13:47:22 NEEDLE Cook 21G 4cm Radial (X26753) opened to sterile field. 13:47:25 SHEATH 6FR RAIN (1673164) opened to sterile field. 13:47:25 EMERALD Guide Wire (459-406) opened to sterile field. 13:51:27 Zero performed for pressure channel P1 14:02:40 Physician arrived 14:02:41 Final Timeout: patient, procedure, and site verified with staff and physician. All members of the team are in agreement. 14:02:41 --------ALL STOP TIME OUT------ 14:02:44 Right Radial & Right Groin site verified by team. 14:02:49 Fire Safety Assessment: A--An alcohol-based skin anteseptic being used preoperatively., C--Open oxygen or nitrous oxide is being used., D--An ESU, laser, or fiber-optic light is being used. 14:02:53 Physical assessment completed. ASA score P 3 - A patient with severe systemic disease as per Joe Gavin MD. 14:03:23 Versed 2 mg I.V. was administered by Tacos Parr RN; for sedation; Verbal order read back and verified. 14:03:28 Fentanyl 50 mcg I.V. was administered by Tacos Parr RN; for sedation; Verbal order read back and verified. 14:05:54 Procedure started. 14:06:32 Local anesthetic to right radial artery with Lidocaine 2% by Joe Gavin MD.INITIAL ACCESS ONLY 14:08:36 A 5 Fr sheath was inserted into the Right Radial artery 14:08:53 Versed 2 mg I.V. was administered by Tacos Parr RN; for sedation; Verbal order read back and verified. 14:08:57 Fentanyl 50 mcg I.V. was administered by Tacos Parr RN; for sedation; Verbal order read back and verified. 14:09:14 A DIAGNOSTIC Vinicius 110cm 5Fr catheter ([id number]) was advanced over the wire and used for Procedure. 14:10:35 LV angiography performed. 14:11:33 EF : 50 % 14:12:12 LCA angiography performed. 14:12:55 RCA angiography performed. 14:14:09 Catheter removed. 14:19:40 Sheath removed intact; hemostasis achieved with Mechanical Compression to the Right Radial artery. 14:19:44 Procedure ended.(Physican Out) 14:20:00 Fluoroscopy time 02.60 minutes. 14:20:06 Fluoroscopy dose: 253 mGy 14:20:06 Flurop Dose total: 253 14:20:11 Dose Area Product 06415 mGy/cm. 14:20:17 Contrast amount:Isovue 300 55ml. 14:20:20 Maximum allowable dose exceeded? No. 14:20:24 Insertion/operative site no bleeding no hematoma. 14:20:28 Post Procedure Pulses reassessed and unchanged 14:20:32 Post-procedure physical assessment completed. ASA score P 2 - A patient with mild systemic disease as per Joe Gavin MD. 14:20:36 Post procedure rhythm: unchanged. 14:20:41 Estimated blood loss: 5 ml 14:20:48 Post procedure instruction explained to patient.Patient verbalizes understanding. 14:21:19 Procedure type changed to Cath procedure, Diagnostic procedure, LHC, LHC w/Coronaries, Sedation Charges, Moderate Sedation up to 15 minutes 14:21:22 Procedure and supply charges have been captured, reviewed, submitted and are correct. 14:21:43 Procedure Complication : No complications 14:21:46 Vital chart was stopped 14:21:[address] [facility] Findings: MVD- MD will discuss options w/ pt 14:21:53 Operative report dictated upon procedure completion. 14:21:54 See physician's report for complete and final results. 14:21:57 Report given to Pre/Post Procedure Room. 14:22:00 Patient transfered to Pre/Post Procedure Room with Stretcher. 14:22:03 Full Disclosure recording stopped 14:22:03 Procedure ended. 14:22:12 End room use (Document Last) 14:22:32 End room use (Document Last) 14:23:16 End room use (Document Last) Device Usage Item Name Manufacture Quantity Catalog Hospital Part Current Minima l Lot# / Number Charge Number Stock Stock Serial# Code ACIST Acist 1 15750 270839 641671 [id number] 20 Syringe Medical (87267) Systems Inc Medline Medline 1 [id number] 93522 259882 5 Cath Pack ([id number]) Bag Microtek 1 2001S 275200 14020 808021 5 Decanter Medical Inc. () ACIST Hand Acist 1 56212 987642 102206 567915 5 Control Medical (38352) Systems Inc ACIST Acist 1 29619 694261 542324 688515 5 Manifold Medical (57349) Systems Inc Tegaderm 4 3M 1 1626W 403899 361470 505507 5 x 4 (1626W) MBrace Advanced 1 140-0250-00 975774 58266 522628 5 Wrist Vascular Support Dynamics ([id number]) NEEDLE Cook Cook Medical 1 [id number] 782483 458028 286406 5 21G 4cm Radial (Z84005) [facility] Cardinal 1 502-455 634573 683796 372751 5 Guide Wire Health (502455) SHEATH 6FR Cardinal 1 4741962 031947 3090430 005981 5 [facility] ([id number]) DIAGNOSTIC Terumo 1 40-7093 336664 432191 861930 5 Vinicius 110cm 5Fr catheter (453093) Signature Audit [place] Stage Time Signature Unsigned Intra-Procedure 04/02/2019 Josefina Thompson 2:22:32 PM RT(R) Intra-Procedure 04/02/2019 Tacos Parr RN 2:23:16 PM Intra-Procedure 04/02/2019 Joe Gavin MD 2:24:02 PM 04/02/2019 2:25:32 PM Intra-Procedure 04/02/2019 Joe Gavin MD 2:31:03 PM [facility] [address] [facility] [place] [address]
[2019-04-02] MEDS ORDERED: RESTORIL15 MG PO (10:59)
[2019-04-02] MEDS ORDERED: PRED-FORTE 1% OP5 ML EACH EYE (11:01)
[2019-04-02] MEDS ORDERED: TOPROL XL50 MG PO (11:02)
[2019-04-02 11:06] VITALS: BP 188/81; Ht 152.4 cm; Wt 58.2 kg
[2019-04-02 12:43] LABS: BASOPHILS 0.3 % (0-2); EOSINOPHILS 2.4 % (0-7); HEMATOCRIT 40.7 % (36.0-48.0); HEMOGLOBIN 13.6 g/dL (12-16); IMMATURE GRANULOCYTES 0.3 % (0-5); LYMPHOCYTES 32.9 % (15-50); MCH 32.4 pg (26.0-34.0); MCHC 33.4 g/dL (31.0-37.0); MCV 96.9 fL (80.0-100.0); MEAN PLATELET VOLUME 10.4 fL (7.4-10.4); MONOCYTES 10.6 % (2-11); NEUTROPHILS 53.5 % (40-80); PLATELET COUNT 167 10x3/uL (130-400); RDW 12.7 % (11.5-14.5); WBC 3.4 10x3/uL (4.8-10.8)
[2019-04-02 13:03] LABS: ALT (SGPT) 49 U/L (10-68); CALC OSMOLALITY 282 mosm/kg (275-300); CALCIUM 8.2 mg/dL (8.5-10.1); CARBON DIOXIDE 29.5 mmol/L (21.0-32.0); CHLORIDE - SERUM 107 mmol/L (98-107); CHOL - HDL RATIO 3.1 ratio (2.3-4.1); CHOLESTEROL, TOTAL 183 mg/dL (0-200); CREATININE - SERUM 0.6 mg/dL (0.6-1.3); GLUCOSE 89 mg/dL (74-106); HDL CHOLESTEROL 59 mg/dL (32-96); LDL CHOLESTEROL 110 mg/dL (0-100); LDL-HDL RATIO 1.9 ratio (1.5-3.5); POTASSIUM - SERUM 4.6 mmol/L (3.5-5.1); SODIUM 142 mmol/L (136-145); TRIGLYCERIDE 71 mg/dL (30-200); UREA NITROGEN 16 mg/dL (7-18); eGFR NON AFRICAN AMERICAN > 90 mL/min (90-120)
--- NOTE | 2019-04-02 14:45 | NUR ---
PT RECEIVED VIA STRETCHER FROM [employer] FOR RECOVERY. PT AWAKE BUT DROWSY. PT DENIES PAIN OR DISCOMFORT. IV INFUSING VIA ORDERS TO L HAND. PT PLACED ON CARDIAC MONITORS AND O2 VIA NC AT 2L. R WRIST W ZYPHER BAND AND IMMOBILIZER IN PLACE, DRESSING CDI NO S/S HEMATOMA NOTED. ARM PINK AND WARM, CAP REFILL BRISK. PT INSTRUCTED TO KEEP ARM STILL IF POSSIBLE. SIPS OF SPRITE GIVEN, AT BS AND CALL LIGHT IN REACH
--- NOTE | 2019-04-02 15:15 | NUR ---
PT RESTING COMFORTABLY, DENIES PAIN OR NEEDS AT THIS TIME. HR 52, BP 160/64, RR 11, SAT 100. ZYPHER AND IMMOBILIZER IN PLACE TO R WRIST, NO BLEEDING NOTED. NO S/S HEMATOMA. CAP REFILL BRISK. CALL LIGHT IN REACH. REMAINS AT BEDSIDE
--- NOTE | 2019-04-02 15:48 | NUR ---
PT SITTING UP IN BED EATING SANDWICH. DR PHAM AT DISCUSSING PLAN OF CARE AND PROCEDURE RESULTS. CALL LIGHT IN REACH
--- NOTE | 2019-04-02 16:04 | NUR ---
PT RESTING W/O COMPLAINTS. TOLERATED PO FOOD W/O NAUSEA. 3 ADD'L CC AIR REMOVED FROM Z BAND, NO BLEEDING OR S/S HEMATOMA NOTED. ARM PINK AND WARM, CAP REFILL BRISK. VSS. CALL LIGHT IN REACH.
--- NOTE | 2019-04-02 16:31 | NUR ---
DISCHARGE INSTRUCTIONS REVIEWED W PT AND , BOTH VERBALIZED UNDERSTANDING. IV REMOVED W CATH INTACT, MONITORS REMOVED. R WRIST W/O BLEEDING OR S/S HEMATOMA NOTED. PT UP TO DRESS FOR DISCHARGE.
--- NOTE | 2019-04-02 16:35 | NUR ---
Z BAND AND REMAINING AIR REMOVED, NO BLEEDING OR S/S HEMATOMA NOTED. 2X2 AND TEGADERM DRESSING APPLIED AND IMMOBILIZER REPOSITIONED. PT DISCHARGED VIA WC TO WAITING IN PRIVATE VEHICLE. PT HAD ALL BELONGINGS AND DISCHARGE INSTRUCTIONS
== END 2019-04-02 16:35 | disposition home or self-care (01) ==
LOC: D.CATH 10:48
PROVIDERS: ATTEND Internal Medicine Cardiovascular Disease
DX: I25.119 Atherosclerotic heart disease of native coronary artery with unspecified angina pectoris (principal); R94.39 Abnormal result of other cardiovascular function study; I10 Essential (primary) hypertension; I73.9 Peripheral vascular disease, unspecified

== ENCOUNTER → 2019-08-10 10:29 | Outpatient (CLI) | payer MEDICARE, OTHER ==
[2019-04-02 11:06] VITALS: BMI 25.0
[~2019-08-10 10:29] MED LIST changes: +PRED-FORTE 1% OP5 ML EACH EYE; +RESTORIL15 MG PO; +TOPROL XL50 MG PO
== END | disposition home or self-care (01) ==
LOC: D.HCCECHO 10:29
PROVIDERS: ATTEND Internal Medicine Cardiovascular Disease
DX: I10 Essential (primary) hypertension (principal)

== ENCOUNTER → 2019-08-14 12:54 | Outpatient (CLI) | payer MEDICARE, OTHER ==
[2019-04-02 11:06] VITALS: BMI 25.0
== END | disposition home or self-care (01) ==
LOC: D.US 12:54
PROVIDERS: ATTEND Thoracic Surgery (Cardiothoracic Vascular Surgery)
DX: I73.9 Peripheral vascular disease, unspecified (principal)

== ENCOUNTER → 2019-09-11 06:40 | Outpatient (CLI) | payer MEDICARE, OTHER ==
[~2019-09-11] VITALS: Ht 152.4 cm; Wt 60.1 kg
--- NOTE | ~2019-09-11 | HEMODYNAMI ---
PATIENT:NANCY MAR MEDICAL RECORD: [id number] : 54 LOCATION:[facility] ADMISSION DATE: 09/11/19 Generatedon:09/11/201910:56 Patient name: NANCY MAR Patient #: [id number] SSN: [id number] : 1950 Date of study: 09/11/2019 Page: Of Hemodynamic Procedure Report Patient Data Patient Demographics Procedure consent was obtained First Name: NANCY Gender: Female Last Name: ZAID : 1950 [facility] Initial: J Age: 69 year(s) Patient #: [id number] Race: Unknown SSN: [id number] Additional ID: [id number] Contact details Address: [address] [place] [address] State: [place] City: [place] Zip code: [address] Past Medical History History of disease Date Diagnosis Comments CAD Allergies Allergen Reaction Date Comments Reported Other allergy 06/06/2017 SULFA, CODEINE Other allergy 04/02/2019 Sulfa, Codeine Other allergy 09/11/2019 CODEINE, SULFA Admission Admission Data Admission Date: 09/11/2019 Admission Time: 6:40 Arrival Date: 09/11/2019 Arrival Time: 0:00 Height (in.): 59.84 BSA: 1.56 (m2) Height (cm.): 152 BMI: 25.97 (kg/m2) Weight (lbs.): 132.28 Weight (kg.): 60 Lab Results Lab Result Date: 09/11/2019 Lab Result Time: 0:00 Biochemistry Name Units Result Min Max BUN mg/dl 18 --(---*)-- 7 18 Creatinine mg/dl 0.7 --(*---)-- 0.6 1.3 eGFR ml/min 88.71040 -*(----)-- 90 120 NONAFRICAN CBC Name Units Result Min Max Hematocrit % 41.2 -*(----)-- 42 54 Hemoglobin g/dl 13.6 --(*---)-- 13.5 17.5 Procedure Procedure Types Cath Procedure Diagnostic Procedure [facility] w/Coronaries Sedation Charges Moderate Sedation up to 15 minutes Moderate Sedation up to 45 minutes PCI Procedure Coronary Stent Coronary Stent Initial Hemochron ACT Test Procedure Description Procedure Date Procedure Date: 09/11/2019 Procedure Start Time: 9:38 Procedure End Time: 10:48 Procedure Staff Name Function Joe Gavin MD Performing Physician Josefina Thompson RT Scrub Mignon Baer RN Nurse Shital Johnson RT Monitor Erica Clifford RT Art Gallery Director Kelly Tovar MD Performing Physician Procedure Data Cath Procedure Fluoroscopy Diagnostic fluoroscopy Total fluoroscopy Time: time: 13.1 min 13.1 min Diagnostic fluoroscopy Total fluoroscopy dose: dose: 218.13 mGy 218.13 mGy Contrast Material Contrast Material Type Amount (ml) Isovue 300 84 Entry Location Entry Primary Successful Side Size Upsize Upsize Entry Closure Joel ccessful Closure Location (Fr) 1 (Fr) 2 (Fr) Remarks Device Remarks Femoral Left 5 Fr Manual vein Compression Femoral Left 5 Fr 6 Fr Exoseal artery Short Estimated blood loss: 10 ml Diagnostic catheters Device Type Used For End Catheter Placement MULTIPACK 3DRC 5Fr Right Coronary catheter Angiography MULTIPACK JL 4.0 5Fr Left Coronary catheter Angiography MULTIPACK Pigtail 5 Fr LV Angiography catheter Procedure Complications No complications Procedure Medications Medication Administration Route Dosage 0.9% NaCl I.V. 100 ml/hr Oxygen etCO2 Nasal cannula 2 l/min Lidocaine 2% added to field 20 Heparin Flush Bag added to field 2 bags (1000units/500ml NS) Zofran I.V. 4 mg Versed I.V. 2 mg Fentanyl I.V. 50 mcg Versed I.V. 2 mg Fentanyl I.V. 50 mcg Heparin Bolus I.V. 4500 units Hemodynamics Rest BSA: 1.56 (m2) HGB: 13.6 (g/dl) O2 Consumption: Estimated: 140.67 (ml/min) O2 Co nsumption indexed: Estimated:90.17 (ml/min/m) Heart Rate: 63 (bpm) Pressure Samples Time Site Value (mmHg) Purpose Heart Use Rate(bpm) 10:25 LV 176/14,26 Snapshot 54 Gradients Valve Time Site Site Mean SEP/DFP Peak To Heart Use 1 2 (mmHg) (sec/min) Peak Rate (mmHg) (bpm) Aortic 10:26 LV AO 54 Snapshots Pre Cath Intra NCS Post Cath Vital Signs Time Heart Resp SPO2 etCO2 NIBP (mmHg) Rhythm Pain Sedation Rate (ipm) (%) (mmHg) Status Level (bpm) 9:20:24 62 16 100 35 173/78(141) NSR 0 (11) 10(A) , No pain 9:24:47 61 16 100 11.2 172/83(110) NSR 0 (11) 10(A) , No pain 9:29:07 55 18 100 14.9 132/61(97) SB 0 (11) 10(A) , No pain 9:33:19 54 12 100 22.4 129/64(102) SB 0 (11) 10(A) , No pain 9:37:33 57 10 98 43 114/62(81) SB 0 (11) 10(A) , No pain 9:42:32 57 12 97 27.6 123/71(102) SB 0 (11) 9(A) , No pain 9:46:44 56 10 100 28.4 131/60(88) SB 0 (11) 9(A) , No pain 9:51:02 55 13 100 26.9 108/50(83) SB 0 (11) 9(A) , No pain 9:55:12 55 14 100 25.4 115/48(93) SB 0 (11) 9(A) , No pain 9:59:22 54 13 100 23.1 102/56(92) SB 0 (11) 9(A) , No pain 10:03:27 54 13 100 24.6 106/53(93) SB 0 (11) 9(A) , No pain 10:07:33 54 14 100 21.6 101/57(96) SB 0 (11) 9(A) , No pain 10:12:32 53 13 100 15.6 Measuring SB 0 (11) 9(A) , No pain 10:12:40 54 12 100 24.7 122/47(74) SB 0 (11) 9(A) , No pain 10:17:39 56 15 99 21.6 Measuring SB 0 (11) 9(A) , No pain 10:17:49 57 15 99 22.4 152/68(111) SB 0 (11) 9(A) , No pain 10:22:10 53 10 100 23.9 143/68(119) SB 0 (11) 9(A) , No pain 10:26:28 54 10 100 22.4 150/59(108) SB 0 (11) 9(A) , No pain 10:30:48 52 15 99 26.2 149/68(123) SB 0 (11) 9(A) , No pain 10:35:10 53 10 100 26.9 144/60(113) SB 0 (11) 9(A) , No pain 10:40:09 59 13 100 20.2 Measuring SB 0 (11) 9(A) , No pain 10:40:27 59 15 100 18.7 178/92(98) SB 0 (11) 10(A) , No pain 10:44:50 62 14 100 20.9 190/96(112) SB 0 (11) 10(A) , No pain Medications Time Medication Route Dose Verified Delivered Reason Notes Effectiveness by by 9:19:19 0.9% NaCl I.V. 100 Joe Mignon used for ml/hr Romaine Baer chief embalmer 9:19:25 Oxygen etCO2 2 Joe Mignon used for Nasal l/min Romaine Baer procedure cannula RN 9:19:30 Lidocaine 2% added 20ml Joe Joe for local to vial Romaine Gavin MD anesthetic field 9:19:34 Heparin Flush added 2 Joe Joe used for Bag to bags Romaine Gavin MD procedure (1000units/500ml field NS) 9:25:27 Zofran I.V. 4 mg Joe Mignon for nausea Romaine Baer RN 9:33:20 Versed I.V. 2 mg Joe Mignon for sedation Romaine Baer RN 9:33:27 Fentanyl I.V. 50 Joe Mignon for sedation mcg Romaine Baer RN 9:39:17 Versed I.V. 2 mg Joe Mignon for sedation Romaine Baer RN 9:39:20 Fentanyl I.V. 50 Joe Mignon for sedation mcg Romaine Baer RN 10:31:17 Heparin Bolus I.V. 4500 Norred Mignon for verif ied units Guy Baer anticoagulation with Dr. JUDY Mcdowell Procedure Log Time Note 8:45:14 Informed consent obtained and on chart 8:49:52 Procedure Status Elective Heart Cath (OP). 8:49:53 Time tracking: Regular hours (M-F 7:00 - 5:00) 8:49:57 Plan of Care:Hemodynamics will remain stable., Cardiac rhythm will remain stable., Comfort level will be maintained., Respiratory function will remain adequate., Patient/ family verbilizes understanding of procedure., Procedure tolerated without complication., Recovers from procedure without complications.. 8:51:47 Patient Weight : 132.28 lbs 8:51:49 Patient Height : 59.84 inches 8:51:55 Arrival Date: 09/11/2019 12:00:00 AM 8:55:48 H&P Date Dictated: 08/28/2019 Within 30 days and on chart., H&P Addendum completed by physician on day of procedure. (MUST COMPLETE FOR ALL OUTPATIENTS). 8:56:02 Patient allergic to Other allergyCODEINE, SULFA 8:58:49 Lab Result : BUN 18 mg/dl 8:58:49 Lab Result : Creatinine 0.7 mg/dl 8:58:49 Lab Result : eGFR NONAFRICAN 88.20195 ml/min 8:58:49 Lab Result : Hematocrit 41.2 % 8:58:49 Lab Result : Hemoglobin 13.6 g/dl 9:08:31 Josefina HURD(R) sent for patient. Start room use. 9:12:21 Patient received from Pre/Post Procedure Room to [facility] 2 Alert and oriented. Tansferred to table in Supine position. 9:12:22 Warm blankets applied, and lino hugger turned on for patient comfort. 9:12:23 Correct patient and procedure confirmed by team. 9:12:24 ECG and BP/O2 sat monitors applied to patient. 9:19:11 Vital chart was started 9:19:19 0.9% NaCl 100 ml/hr I.V. was administered by Mignon Baer RN; used for procedure; Verbal order read back and verified. 9:19:25 Oxygen 2 l/min etCO2 Nasal cannula was administered by Mignon Baer RN; used for procedure; Verbal order read back and verified. 9:19:30 Lidocaine 2% 20ml vial added to field was administered by Joe Gavin MD; for local anesthetic; Verbal order read back and verified. 9:19:34 Heparin Flush Bag (1000units/500ml NS) 2 bags added to field was administered by Joe Gavin MD; used for procedure; Verbal order read back and verified. 9:20:11 Baseline sample Acquired. 9:20:16 Rhythm: sinus rhythm 9:20:18 Full Disclosure recording started 9:20:42 Pre-procedure instructions explained to patient. 9:20:42 Pre-op teaching completed and patient verbalized understanding. 9:20:46 Family in patients room. 9:20:47 Patient NPO since Midnight. 9:20:49 Is patient on blood thinner?Yes 9:20:52 ACC The patient was administered the following blood thiners within the last 24 hours: ACCPlavix 9:20:54 Patient diabetic? No. 9:20:56 Patient not . Patient is over age 55. 9:20:59 Is the patient allergic to Iodine/contrast media? No. 9:21:10 Previous problem with sedation/anesthesia? Yes NAUSEA 9:21:13 Snore? Yes 9:21:14 Sleep apnea? No 9:21:15 Deviated septum? No 9:21:16 Opens mouth fully? Yes 9:21:17 Sticks out tongue? Yes 9:21:19 Airway obstruction? Yes COPD 9:21:22 Dentures? No ? 9:21:26 Pre procedure: left dorsailis pedis pulse 1+ Palpable, but thready & weak; easily obliterated 9:21:44 Patient pain scale 0/10 ?. 9:22:26 IV patent on arrival in left hand with 0.9% NaCl at KVO. 9:22:28 Lab results completed and on chart. 9:22:35 Stress Test: yes; abnormal ANTERIOR 9:22:44 Left groin area was prepped with chlora-prep and draped in sterile fashion 9:23:17 Alarms reviewed by R. N. 9:23:18 Sharps counted by scrub and verified by R.N. 9:23:22 Use device set Femoral Dx 9:23:23 ACIST Syringe (25835) opened to sterile field. 9:23:23 Bag Decanter () opened to sterile field. 9:23:24 ACIST Hand Control (10805) opened to sterile field. 9:23:25 ACIST Manifold (27519) opened to sterile field. 9:23:25 Tegaderm 4 x 4 (1626W) opened to sterile field. 9:23:26 Medline Cath Pack ([id number]) opened to sterile field. 9:23:27 DIAGNOSTIC Multipack 5Fr catheter set (KR5451) opened to sterile field. 9:23:28 SHEATH 5FR [place] (XIK151) opened to sterile field. 9:23:29 EMERALD Guide Wire (881-984) opened to sterile field. 9:25:27 Zofran 4 mg I.V. was administered by Mignon Baer RN; for nausea; Verbal order read back and verified. 9:32:22 --------ALL STOP TIME OUT------ 9:32:23 Final Timeout: patient, procedure, and site verified with staff and physician. All members of the team are in agreement. 9:32:25 Left groin site verified by team. 9:32:28 Fire Safety Assessment: A--An alcohol-based skin anteseptic being used preoperatively., C--Open oxygen or nitrous oxide is being used., D--An ESU, laser, or fiber-optic light is being used. 9:32:32 Physical assessment completed. ASA score P 2 - A patient with mild systemic disease as per Joe Gavin MD. 9:32:35 2) 60-89 Mildly reduced kidney function, and other findings (as for stage 1) point to kidney disease. 9:32:37 Maximum allowable contrast dose (3.7 X eGFR X 0.75)244 ml. 9:32:40 Sedation plan: IV Moderate Sedation Medication:Versed, Fentanyl 9:33:17 Zero performed for pressure channel P1 9:33:20 Versed 2 mg I.V. was administered by Mignon Baer RN; for sedation; Verbal order read back and verified. 9:33:27 Fentanyl 50 mcg I.V. was administered by Mignon Baer RN; for sedation; Verbal order read back and verified. 9:35:55 Procedure started. 9:38:07 MICROPUNCTURE 4FR [place] (Y06999) opened to sterile field. 9:38:18 Local anesthetic to left femerol artery with Lidocaine 2% by Joe Gavin MD.INITIAL ACCESS ONLY 9:39:17 Versed 2 mg I.V. was administered by Mignon Baer RN; for sedation; Verbal order read back and verified. 9:39:20 Fentanyl 50 mcg I.V. was administered by Mignon Baer RN; for sedation; Verbal order read back and verified. 9:52:52 Access obtained with 4Fr micropunture. 9:53:49 A 5 Fr sheath was inserted into the Left Femoral vein 9:54:12 SHEATH 5FR [place] (HSV131) opened to sterile field. 10:13:32 UNABLE TO GET LEFT GROIN ACCESS. 10:13:55 DR. MCDOWELL STEPPING IN TO ASSIST WITH PROCEDURE FOR DR. GAVIN. 10:14:26 RIGHT GROIN PREP AND DRAPED 10:16:50 Access obtained with 4Fr micropunture. 10:17:09 A 5 Fr sheath was inserted into the Left Femoral artery 10:20:05 RCA angiography performed. 10:20:51 A MULTIPACK 3DRC 5Fr catheter was advanced over the wire and used for Right Coronary Angiography. 10:21:02 Injector settings: Ml/sec: 3, Volume: 6, 10:22:02 Catheter exchanged over wire. 10:22:11 A MULTIPACK JL 4.0 5Fr catheter was advanced over the wire and used for Left Coronary Angiography. 10:22:21 Injector settings: Ml/sec: 3, Volume: 6, 10:24:20 Catheter exchanged over wire. 10:24:30 A MULTIPACK Pigtail 5 Fr catheter was advanced over the wire and used for LV Angiography. 10:24:40 LCA angiography performed. 10:24:40 Injector settings: Ml/sec: 12, Volume: 8, 10:24:47 LV gram done using PADRON 10:25:59 LV hemodynamics recorded. 10:27:40 EF : 40 % 10:27:49 Catheter exchanged over wire. 10:29:04 Proceeding to intervention. 10:29:41 SHEATH 6FR [place] (TGW530) opened to sterile field. 10:29:42 INFLATOR Merit BasixCompak (PP0166) opened to sterile field. 10:30:34 GUIDE 6FR ART 3.5 SH catheter ([id number]) opened to sterile field. 10:30:50 COPILOT Valve Control (8795768) opened to sterile field. 10:31:07 BMW 190cm [place] 2 J wire ([id number]) opened to sterile field. 10:31:17 Heparin Bolus 4500 units I.V. was administered by Mignon Baer RN; for anticoagulation; verified with Dr. Mcdowell Verbal order read back and verified. 10:31:30 Sheath upsized to a 6 Fr Short. 10:31:43 6 Fr ART3.5 SH guide catheter was inserted over the wire 10:31:51 EUB011 wire advanced. 10:31:55 ACC Pre-intervention TAL Flow is 3. 10:32:24 Pre PCI Site: [place] mRCA has 90% stenosis. 10:34:01 Wire advanced across lesion. 10:37:58 Place stent Inflation Number: 1 A CHRISTINE RX 2.5 x 22 stent ([id number]) was prepped and advanced across the Mid RCA . The stent was deployed at 17 KARLEE for 0:00 (min:sec) . 10:38:15 Stent catheter was removed intact over wire. 10:38:18 ACC Post-intervention TAL Flow is 3. 10:38:32 Post PCI Site: [place] mRCA has 0% stenosis. 10:38:39 Wire removed. 10:38:40 Guide catheter removed. 10:39:41 EXOSEAL 6Fr (EX600) opened to sterile field. 10:40:09 DR. GAVIN WILL DEPLOY EXOSEAL. 10:40:35 Sheath removed intact; hemostasis achieved with Exoseal to the Left Femoral artery. 10:41:02 Procedure ended.(Physican Out) 10:41:10 ACT drawn and resulted at 262 seconds. (normal therapeutic range 180-240 seconds). 10:42:57 Contrast amount:Isovue 300 84ml. 10:43:09 Fluoroscopy time 13.10 minutes. 10:43:17 Flurop Dose total: 218.13 10:43:17 Fluoroscopy dose: 218.13 mGy 10:43:27 Dose Area Product 2414.55 mGy/cm. 10:43:32 Maximum allowable dose exceeded? No. 10:43:48 Sheath removed intact; hemostasis achieved with Manual Compression to the Left Femoral vein. 10:44:02 Post-op/insertion site Left Femoral artery dressed using a 4 x 4 and Tegaderm. 10:44:14 Post-op/insertion site Left Femoral vein dressed using a 4 x 4 and Tegaderm. 10:44:23 Post left femerol artery:stable 10:44:54 Post left femoral vein:stable 10:45:55 Post-procedure physical assessment completed. ASA score P 2 - A patient with mild systemic disease as per Joe Gavin MD. 10:46:00 Post procedure rhythm: unchanged. 10:46:03 Estimated blood loss: 10 ml 10:46:05 Post procedure instruction explained to patient.Patient verbalizes understanding. 10:46:06 Patient needs reinforcement of post procedure teaching. 10:46:50 Procedure type changed to Cath procedure, Diagnostic procedure, LHC, C w/Coronaries, Sedation Charges, Moderate Sedation up to 15 minutes, Moderate Sedation up to 45 minutes, PCI procedure, Coronary Stent, Coronary Stent Initial, Hemochron ACT Test 10:46:52 Procedure and supply charges have been captured, reviewed, submitted and are correct. 10:47:38 Procedure Complication : No complications 10:47:41 Vital chart was stopped 10:47:48 [facility] Findings: MVD- PCI performed (see procedure note) 10:47:50 Operative report dictated upon procedure completion. 10:47:50 See physician's report for complete and final results. 10:48:13 Report given to Pre/Post Procedure Room. 10:48:20 Patient transfered to Pre/Post Procedure Room with Stretcher. 10:48:32 Procedure ended. 10:48:32 Full Disclosure recording stopped 10:48:41 ACC-PCI Only Patient was given prescriptions, or instructed by Joe Gavin MD to start/continue the following medications upon discharge: Plavix 10:49:21 FEMSTOP Gold (O41050) opened to sterile field. 10:52:49 Femstop placed over the left femerol artery at 150 mmHg. Hemostasis achieved. 10:53:15 End room use (Document Last) Intervention Summary Intervention Notes Time ActionType Lesion and Equipment Used Action# Pressure Duration Attributes 10:37:58 Place stent Mid RCA CHRISTINE RX 2.5 x 1 17 00:00 22 stent ([id number]) Device Usage Item Name Manufacture Quantity Catalog Number Hospital Part Current M inimal Lot# / Charge Number Stock Stock Serial# Code ACIST Syringe Acist 1 65913 315456 447278 696082 2 0 (55013) Medical Systems Inc Bag Decanter Microtek 1 2001S 478302 01181 816947 5 (2001S) Medical Inc. ACIST Hand Acist 1 96190 593396 778654 897234 5 Control Medical (04222) Systems Inc ACIST Manifold Acist 1 36622 111528 098321 969671 5 (09898) Medical Systems Inc Tegaderm 4 x 4 3M 1 1626W 815958 479335 116403 5 (1626W) Medline Cath Medline 1 [id number] 180499 48246 869400 5 Pack ([id number]) DIAGNOSTIC Cardinal 1 NW7804 535756 52071 071715 3 0 Multipack 5Fr Health catheter set (VE6435) SHEATH 5FR Terumo 2 PKE007 722147 586432 215910 5 [place] (GEF861) EMERALD Guide Cardinal 1 502-455 139131 667031 435422 5 Wire (502-455) Health MICROPUNCTURE Cook [facility] 1 Q99910 616311 191767 366337 5 4FR [employer] (G98223) MULTIPACK 3DRC Cardinal 1 700400 5 5Fr catheter Health MULTIPACK JL Cardinal 1 597028 5 4.0 5Fr Health catheter MULTIPACK Cardinal 1 476681 5 Pigtail 5 Fr Health catheter SHEATH 6FR Terumo 1 DOW242 908694 526067 866268 4 0 [place] (WWA144) INFLATOR Merit Merit 1 QY4683 926827 698629 242808 1 5 [employer] (FG9106) GUIDE 6FR ART [place] 1 [id number] 555935 908216 081587 0 3.5 SH Scientific catheter ([id number]) COPILOT Valve [place]arden 1 7423691 576469 539051 786519 5 Control Vascular (9323550) BMW 190cm Darden 1 [id number] 017905 75838 602492 5 [place] 2 J Vascular wire (8351670E) CHRISTINE RX 2.5 x Medtronic 1 [id number] 159643 3527579 317522 5 22 stent ([id number]) EXOSEAL 6Fr Cardinal 1 EX600 027663 495840 471699 1 0 (EX600) Health FEMSTOP Gold St Nic 1 I70312 902435 164993 146973 5 (Q70156) Signature Audit Wilbur Stage Time Signature Unsigned Intra-Procedure 09/11/2019 [place] 10:55:02 AM Alex HURD(R) (CV) Intra-Procedure 09/11/2019 Mignon Baer 10:55:44 AM RN Intra-Procedure 09/11/2019 Joe Gavin MD 10:56:14 AM [place] [id number] [place] [id number]
[~2019-09-11 06:40] MED LIST changes: +ENTRESTO 49 MG1 EACH PO; +FUROSEMIDE20 MG PO; +ISOSORBIDE MONO30 M1 PO; +VERAPAMIL HCL40 MG PO
[2019-09-11 07:14] VITALS: BP 146/58; Ht 152.4 cm; Wt 60.1 kg
[2019-09-11 08:22] LABS: ALT (SGPT) 67 U/L (10-68); CALC OSMOLALITY 284 mosm/kg (275-300); CALCIUM 8.9 mg/dL (8.5-10.1); CARBON DIOXIDE 28.8 mmol/L (21.0-32.0); CHLORIDE - SERUM 104 mmol/L (98-107); CHOL - HDL RATIO 2.9 ratio (2.3-4.1); CHOLESTEROL, TOTAL 194 mg/dL (0-200); CREATININE - SERUM 0.7 mg/dL (0.6-1.3); GLUCOSE 92 mg/dL (74-106); HDL CHOLESTEROL 67 mg/dL (32-96); LDL CHOLESTEROL 111 mg/dL (0-100); LDL-HDL RATIO 1.7 ratio (1.5-3.5); POTASSIUM - SERUM 4.2 mmol/L (3.5-5.1); SODIUM 142 mmol/L (136-145); TRIGLYCERIDE 81 mg/dL (30-200); UREA NITROGEN 18 mg/dL (7-18); eGFR NON AFRICAN AMERICAN 88 mL/min (90-120)
[2019-09-11 08:28] LABS: BASOPHILS 0.7 % (0-2); EOSINOPHILS 2.4 % (0-7); HEMATOCRIT 41.2 % (36.0-48.0); HEMOGLOBIN 13.6 g/dL (12-16); IMMATURE GRANULOCYTES 0.2 % (0-5); LYMPHOCYTES 26.8 % (15-50); MCH 32.2 pg (26.0-34.0); MCV 97.6 fL (80.0-100.0); MEAN PLATELET VOLUME 11.4 fL (7.4-10.4); MONOCYTES 14.6 % (2-11); NEUTROPHILS 55.3 % (40-80); RBC 4.22 10x6/uL (4.00-5.40); RDW 12.9 % (11.5-14.5); WBC 4.5 10x3/uL (4.8-10.8)
[2019-09-11 08:29] LABS: PLATELET COUNT 239 10x3/uL (130-400)
--- NOTE | 2019-09-11 11:00 | NUR ---
REC'D TO ROOM 10 VIA STRETCHER FROM MARKETING INFORMATION MANAGER. MONITORS ESTAB. PT DROWSY, AT BS. SEE DOT COMPLIANCE COORDINATOR, ALARMS ON AND C/L IN REACH.
--- NOTE | 2019-09-11 11:10 | NUR ---
DR. PHAM AT BS TO UPDATE PT AND .
--- NOTE | 2019-09-11 11:15 | NUR ---
L GROIN SITE C/D/I. FEM STOP IN PLACE, NO S/S BLEEDING. NO CHANGE IN HEMATOMA NOTED IN ASSESSMENT. L LEG/FOOT WARM WITH PALP PULSES. VSS. PT DENIES NEEDS, ALARMS ON AND C/L IN REACH.
--- NOTE | 2019-09-11 11:45 | NUR ---
VSS. L GROIN SITE C/D/I, PULSES PALP. FEM STOP IN PLACE. ALARMS ON AND C/L IN REACH.
--- NOTE | 2019-09-11 12:00 | NUR ---
L GROIN SITE UNCHANGED, NO S/S BLEEEDING - BEGIN WEANING FEM STOP PER MD ORDERS. VSS. PT AWAKENS EASILY, DENIES PAIN OR NEEDS. ALARMS ON AND C/L IN REACH.
--- NOTE | 2019-09-11 12:15 | NUR ---
L GROIN SITE C/D/I, CONT TO WEAN FEM STOP, NO S/S BLEEDING. AT BS. PT DENIES NEEDS.
--- NOTE | 2019-09-11 12:34 | NUR ---
L GROIN SITE C/D/I. FEM STOP IN PLACE WITH ALL AIR REMOVED, WILL CONT CLOSE MONITORING. PT TAKING SIPS WITHOUT DIFFICULTY.
--- NOTE | 2019-09-11 12:55 | NUR ---
L GROIN SITE C/D/I. FEM STOP REMOVED, DSG APPLIED. BRUISING AND SMALL HEMATOMA NOTED. PULSES PALP. ALARMS ON AND C/L IN REACH.
--- NOTE | 2019-09-11 13:30 | NUR ---
L GROIN SITE SOFT, BRUISING NOTED. NO INCREASED SWELLING. PULSES PALP. VSS.
--- NOTE | 2019-09-11 14:00 | NUR ---
L GROIN SITE SOFT, NO S/S BLEEDING, BRUISING NOTED. HOB ELEVATED AND SANDWICH TRAY PROVIDED. VSS. C/L IN REACH.
--- NOTE | 2019-09-11 14:35 | NUR ---
L GROIN SITE SOFT, BRUISING NOTED. PIV D/C'D INTACT - DSG APPLIED. PT ALLOWED UP TO GET DRESSED AND GO TO RESTROOM INDEPENDENTLY.
--- NOTE | 2019-09-11 14:45 | NUR ---
ALL DISCHARGE INSTRUCTIONS INCLUDING RESTRICTIONS, MEDS AND F/U APPT DISCUSSED WITH PT AND HER . SHE VERBALIZES UNDERSTANDING.
--- NOTE | 2019-09-11 14:53 | NUR ---
PT D/C'D VIA WC TO PRIVATE VEHICLE WITH ALL PAPERWORK AND BELONGINGS.
== END | disposition home or self-care (01) ==
LOC: D.CATH 06:40
PROVIDERS: ATTEND Internal Medicine Cardiovascular Disease
DX: I25.119 Atherosclerotic heart disease of native coronary artery with unspecified angina pectoris (principal); R94.39 Abnormal result of other cardiovascular function study; I10 Essential (primary) hypertension; R06.00 Dyspnea, unspecified
CPT/HCPCS: 93458; C9600

== ENCOUNTER → 2019-11-27 12:58 | Outpatient (CLI) | payer MEDICARE, OTHER ==
[2019-09-11 07:14] VITALS: BMI 25.8
== END | disposition home or self-care (01) ==
LOC: D.HCCECHO 10-25 13:30
PROVIDERS: ATTEND Internal Medicine Cardiovascular Disease
DX: I25.10 Atherosclerotic heart disease of native coronary artery without angina pectoris (principal)

== ENCOUNTER 2019-12-07 00:07 | Inpatient (IN) | payer MEDICARE, OTHER ==
[~2019-12-07] VITALS: Ht 152.4 cm; Wt 63.0 kg
[2019-12-07] VITALS (10 sets, daily range): BP systolic 128–173; BP diastolic 60–85; Ht 152.4 cm; Wt 63.0 kg
[2019-12-07 00:35] LABS: BASOPHILS 0.2 % (0-2); EOSINOPHILS 1.2 % (0-7); HEMATOCRIT 38.2 % (36.0-48.0); HEMOGLOBIN 12.7 g/dL (12-16); IMMATURE GRANULOCYTES 0.2 % (0-5); LYMPHOCYTES 18.6 % (15-50); MCH 31.9 pg (26.0-34.0); MCHC 33.2 g/dL (31.0-37.0); MEAN PLATELET VOLUME 10.9 fL (7.4-10.4); MONOCYTES 5.9 % (2-11); NEUTROPHILS 73.9 % (40-80); RBC 3.98 10x6/uL (4.00-5.40); WBC 9.1 10x3/uL (4.8-10.8)
[2019-12-07 00:36] LABS: PLATELET COUNT 292 10x3/uL (130-400)
[2019-12-07 00:37] LABS: ANION GAP 11.3 mmol/L (8-16); CALCIUM 8.4 mg/dL (8.5-10.1); CARBON DIOXIDE 28.1 mmol/L (21.0-32.0); CREATININE - SERUM 0.9 mg/dL (0.6-1.3); POTASSIUM - SERUM 3.4 mmol/L (3.5-5.1)
[2019-12-07 00:40] LABS: APTT 26.9 SECONDS (22.8-39.4); INR 1.04 (0.85-1.17); PROTIME 13.5 SECONDS (11.6-15.0)
[2019-12-07 00:42] LABS: D-DIMER-QUANTITATIVE 1.16 ug/mLFEU (0.20-0.54)
[2019-12-07 00:57] LABS: ALBUMIN 3.7 g/dL (3.4-5.0); BILIRUBIN - TOTAL 0.27 mg/dL (0.2-1.3); C-REACTIVE PROTEIN 2.9 mg/dL (0.0-0.9); MAGNESIUM - SERUM 1.5 mg/dL (1.8-2.4); PROTEIN - SERUM 7.5 g/dL (6.4-8.2)
[2019-12-07 01:00] LABS: TROPONIN-I 0.356 ng/mL (0.000-0.060)
--- NOTE | 2019-12-07 04:13 | NUR ---
COVID SWABBED. TAKEN TO LAB
--- NOTE | 2019-12-07 08:56 | NUR ---
TROPONIN REDRAW CONFIRMED ELEVATED RESULT OF 7.601. CALL TO CARDIOOLOGY AND INFORMED MAYRA BECKETT.
--- NOTE | 2019-12-07 11:00 | NUR ---
Pt admitted from ER approx 1000 to room [address] Chahal w/DX Pneumonia and Elevated Troponin Level 7.6--Dr Chahal aware of this level prior to admission to [facility] and a Cardiology Consult was entered/ER Staff. Pt is a PUI and placed in Covid Unit w/all proper precautions in place. Pt is awake, alert, oriented, ambulatory. Denies c/o chest pain. Asymptomatic to elevated torponin level--02@2L/NC in progress. 22GA to Rt Hand placed/ER Staff is patent.
--- NOTE | 2019-12-07 17:52 | NUR ---
PT'S COVID TEST IS NEGATIVE MOVED FROM ROOM 2131 TO ROOM 2138 AT THIS TIME/WHEELCHAIR--PT TOLERATED WELL
--- NOTE | 2019-12-07 17:58 | NUR ---
PT REFUSES SCD'S
[2019-12-07 20:07] LABS: UDS - AMPHET NEGATIVE QUAL (NEGATIVE); UDS - BARB NEGATIVE QUAL (NEGATIVE); UDS - BENZO NEGATIVE QUAL (NEGATIVE); UDS - COCAINE NEGATIVE QUAL (NEGATIVE); UDS - OPIATE NEGATIVE QUAL (NEGATIVE); UDS - PCP NEGATIVE QUAL (NEGATIVE); UDS - THC NEGATIVE QUAL (NEGATIVE)
--- NOTE | 2019-12-07 22:56 | NUR ---
ASSUMMED CARE OF PT. SPOKE WITH HER ABOUT RESUMMING DOBUTAMINE DRIP PER MD PLAN OF CARE. PT IN AGREEMENT, UNLESS SHE BEGINS TO FEEL SIMILAR TO HOW SHE WAS TODAY AND THEN SHE STATES SHE WILL ASK THAT IT BE TURNED OFF. DOBUTAMINE AT 3MCG/KG STARTED AT 5.3ML/HR TO RIGHT WRIST AT THIS TIME. ASKED PT IF SHE WOULD CONSIDER LETTING STAFF MOVE HER OVER TO THE PCU AREA AND SHE DECLINED FOR TONIGHT. STATES SHE MIGHT DO IT IN THE AM.
[2019-12-08] VITALS (9 sets, daily range): BP systolic 140–188; BP diastolic 59–82
--- NOTE | 2019-12-08 03:43 | NUR ---
3 WAY ADAPTER ADDED TO IV SO THAT IV ABT CAN BE INFUSED. NEW ORDER FOR SOLUMEDROL INITIATED. PT RESTING WITH NO DISTRESS. IV DOBUTAMINE INFUSING AT 5.2ML/HR. SR/80'S PER TELEMETRY. DENIES PAIN OR DISCOMFORT. CPOC.
[2019-12-08 08:28] LABS: BASOPHILS 0 % (0-2); EOSINOPHILS 0 % (0-7); HEMATOCRIT 32.9 % (36.0-48.0); HEMOGLOBIN 10.8 g/dL (12-16); IMMATURE GRANULOCYTES 0.1 % (0-5); MCHC 32.8 g/dL (31.0-37.0); MCV 97.6 fL (80.0-100.0); MEAN PLATELET VOLUME 11.2 fL (7.4-10.4); MONOCYTES 3.4 % (2-11); NEUTROPHILS 85.5 % (40-80); PLATELET COUNT 258 10x3/uL (130-400); RBC 3.37 10x6/uL (4.00-5.40); RDW 13.5 % (11.5-14.5)
[2019-12-08 08:59] LABS: ALBUMIN 3.2 g/dL (3.4-5.0); ALKALINE PHOSPHATASE 58 U/L (30-120); ALT (SGPT) 36 U/L (10-68); BILIRUBIN - TOTAL 0.14 mg/dL (0.2-1.3); CALC OSMOLALITY 282 mosm/kg (275-300); CALCIUM 8.2 mg/dL (8.5-10.1); CARBON DIOXIDE 28.2 mmol/L (21.0-32.0); CHLORIDE - SERUM 107 mmol/L (98-107); GLUCOSE 117 mg/dL (74-106); PRO BNP 7846 pg/mL (0-125); PROTEIN - SERUM 6.3 g/dL (6.4-8.2); SODIUM 142 mmol/L (136-145); UREA NITROGEN 10 mg/dL (7-18)
[2019-12-08 09:00] LABS: CREATININE - SERUM 0.6 mg/dL (0.6-1.3); POTASSIUM - SERUM 4.7 mmol/L (3.5-5.1); TROPONIN-I 2.595 ng/mL (0.000-0.060); eGFR NON AFRICAN AMERICAN > 90 mL/min (90-120)
--- NOTE | 2019-12-08 20:06 | NUR ---
RECEIVED REPORT, WILL ASSUME CARE OF PT, IV-R.HAND-NS@30, DOBUTAMINE @ 5.2, SR-76, RAMÓN AMANDA NEEDS AT THIS TIME, BED IS LOW, SRX2, CALL LIGHT IN REACH, WILL CONTINUE PLAN OF CARE
[2019-12-09 00:09] VITALS: BP 175/70
--- NOTE | 2019-12-09 00:39 | NUR ---
I have reviewed this patient and I concur with the Shift Assessment completed by the Licensed Practical Nurse today this shift.
--- NOTE | 2019-12-09 01:01 | NUR ---
FOUND HER WITH HOME RESCUE INHALER (COMBIVENT) ON BEDSIDE TABLE. SHE ADMITS TO SOMETIMES USING IT BETWEEN OUR UPD TREATMENTS. INSTRUCTED HER NOT TO DO THAT-THAT IF NEEDING MORE RESPIRATORY HELP SHE SHOULD LET US KNOW AND NOT TAKE ANY HOME MEDS WITHOUT PRIOR CLEARENCE. HER MDI WAS PLACED IN PURSE AND ASKER HER TO NOT REMOVE IT FROM THERE DURING HER STAY. SHE AGREED.
[2019-12-09 05:34] VITALS: BP 169/76
[2019-12-09 08:23] VITALS: BP 201/87
--- NOTE | 2019-12-09 08:28 | NUR ---
PT CALLED THIS NURSE TO ROOM AND PT STATES THAT SHE FEELS LIKE HER THROAT IS CLOSING IN, WANTS TO KNOW IF SHE CAN HAVE BENADRYL. CALLED MAMADOU THOMPSON APRN AND GOT ORDER FOR 25MG OF BENADRYL IV Q6HPRN.
[2019-12-09 09:39] LABS: BASOPHILS 0 % (0-2); EOSINOPHILS 0 % (0-7); HEMATOCRIT 33.6 % (36.0-48.0); HEMOGLOBIN 10.9 g/dL (12-16); IMMATURE GRANULOCYTES 0.3 % (0-5); MCH 31.9 pg (26.0-34.0); MCHC 32.4 g/dL (31.0-37.0); MCV 98.2 fL (80.0-100.0); MONOCYTES 2.8 % (2-11); NEUTROPHILS 88.9 % (40-80); PLATELET COUNT 306 10x3/uL (130-400); RBC 3.42 10x6/uL (4.00-5.40); RDW 13.6 % (11.5-14.5); WBC 9.8 10x3/uL (4.8-10.8)
[2019-12-09 09:55] LABS: ALBUMIN 3.5 g/dL (3.4-5.0); ALKALINE PHOSPHATASE 62 U/L (30-120); ALT (SGPT) 38 U/L (10-68); BILIRUBIN - TOTAL 0.28 mg/dL (0.2-1.3); CALCIUM 8.6 mg/dL (8.5-10.1); CARBON DIOXIDE 25.9 mmol/L (21.0-32.0); CHLORIDE - SERUM 103 mmol/L (98-107); GLUCOSE 136 mg/dL (74-106); PROTEIN - SERUM 6.9 g/dL (6.4-8.2); SODIUM 137 mmol/L (136-145)
[2019-12-09 09:56] LABS: CALC OSMOLALITY 276 mosm/kg (275-300); CREATININE - SERUM 0.8 mg/dL (0.6-1.3); POTASSIUM - SERUM 3.6 mmol/L (3.5-5.1); UREA NITROGEN 15 mg/dL (7-18); eGFR NON AFRICAN AMERICAN 76 mL/min (90-120)
--- NOTE | 2019-12-09 11:32 | NUR ---
PT RESTING RESTING COMFORTABLY IN BED, FAMILY AT BEDSIDE, PT DENIES ANY NEEDS AT THIS TIME. CALL LIGHT IN REACH,NAD NOTED, WILL CONTINUE TO MONITOR.
[2019-12-09 12:19] VITALS: BP 168/71
[2019-12-09 16:00] VITALS: BP 147/79
[2019-12-09 21:02] VITALS: BP 176/75
[2019-12-10 00:45] VITALS: BP 191/86
[2019-12-10 04:37] VITALS: BP 196/84
[2019-12-10 06:24] LABS: BASOPHILS 0.1 % (0-2); EOSINOPHILS 0.1 % (0-7); HEMATOCRIT 36.5 % (36.0-48.0); HEMOGLOBIN 11.7 g/dL (12-16); IMMATURE GRANULOCYTES 0.3 % (0-5); LYMPHOCYTES 7.6 % (15-50); MCH 31.5 pg (26.0-34.0); MCHC 32.1 g/dL (31.0-37.0); MCV 98.1 fL (80.0-100.0); MEAN PLATELET VOLUME 11.2 fL (7.4-10.4); MONOCYTES 4.3 % (2-11); NEUTROPHILS 87.6 % (40-80); PLATELET COUNT 298 10x3/uL (130-400); RBC 3.72 10x6/uL (4.00-5.40); RDW 13.4 % (11.5-14.5)
[2019-12-10 06:33] LABS: ALBUMIN 3.4 g/dL (3.4-5.0); ALKALINE PHOSPHATASE 55 U/L (30-120); ALT (SGPT) 36 U/L (10-68); BILIRUBIN - TOTAL 0.24 mg/dL (0.2-1.3); CALC OSMOLALITY 280 mosm/kg (275-300); CALCIUM 8.9 mg/dL (8.5-10.1); CHLORIDE - SERUM 104 mmol/L (98-107); CREATININE - SERUM 0.6 mg/dL (0.6-1.3); GLUCOSE 128 mg/dL (74-106); POTASSIUM - SERUM 3.8 mmol/L (3.5-5.1); PROTEIN - SERUM 6.4 g/dL (6.4-8.2); SODIUM 140 mmol/L (136-145); UREA NITROGEN 13 mg/dL (7-18); eGFR NON AFRICAN AMERICAN > 90 mL/min (90-120)
[2019-12-10 07:48] VITALS: BP 163/68
[2019-12-10 11:25] VITALS: BP 159/70
--- NOTE | 2019-12-10 14:02 | NUR ---
Nutrition Follow-up: Appetite improving. Ate 100% of breakfast this AM. Denies N/V. Continues to have loose BMs. Noted plans to d/c soon. Diet: Cardiac PO intake: 79% avg x 7 meals WT: 128# (12/06) Labs noted: Glu 128, Alb 3.4 Meds noted: Lasix, Solumedrol, Protonix, electrolyte protocol -Encourage PO intake and honor food preferences within diet restrictions. -Monitor wt. -RD following.
[2019-12-10 14:45] VITALS: BP 153/71
--- NOTE | 2019-12-10 17:01 | NUR ---
PT RESTING COMFORTABLY IN BED, DENIES ANY NEEDS AT THIS TIME. CALL LIGHT IN REACH,NAD NOTED, WILL CONTINUE TO MONITOR.
--- NOTE | 2019-12-10 18:13 | NUR ---
PER SOPHY HAYS APRN, D/C DOBUTAMINE DRIP, POSSIBLE DISCHARGE PT IN AM.
[2019-12-10 20:00] VITALS: BP 154/79
[2019-12-11] VITALS: BP 157/61
[2019-12-11 06:59] VITALS: BP 159/69
[2019-12-11 07:01] LABS: BASOPHILS 0 % (0-2); EOSINOPHILS 0 % (0-7); HEMATOCRIT 30.5 % (36.0-48.0); HEMOGLOBIN 9.6 g/dL (12-16); IMMATURE GRANULOCYTES 0.4 % (0-5); LYMPHOCYTES 7.1 % (15-50); MCHC 31.5 g/dL (31.0-37.0); MCV 98.4 fL (80.0-100.0); MEAN PLATELET VOLUME 10.8 fL (7.4-10.4); MONOCYTES 4.3 % (2-11); NEUTROPHILS 88.2 % (40-80); PLATELET COUNT 258 10x3/uL (130-400)
[2019-12-11 07:06] LABS: WBC 5.1 10x3/uL (4.8-10.8)
--- NOTE | 2019-12-11 08:00 | NUR ---
PT SITTING UP IN BED, RR EVEN AND UNLABORED ON RA. STATES IV HURTS TO LEFT HAND. LEFT HAND IS SLIGHTLY SWOLLEN. IV D/C WITH CATHETER TIP INTACT. SPOKE WITH MUSTAPHA NUNEZ TO SEE IF ANOTHER IV NEEDED TO BE RESTARTED OR IF SHE WAS DISCHARGING. HE STATES SHE IS GOING TO BE D/C
[2019-12-11 08:51] LABS: ALBUMIN 3.2 g/dL (3.4-5.0); ALKALINE PHOSPHATASE 57 U/L (30-120); ALT (SGPT) 37 U/L (10-68); BILIRUBIN - TOTAL 0.27 mg/dL (0.2-1.3); CALC OSMOLALITY 281 mosm/kg (275-300); CALCIUM 8.5 mg/dL (8.5-10.1); CHLORIDE - SERUM 104 mmol/L (98-107); CREATININE - SERUM 0.7 mg/dL (0.6-1.3); GLUCOSE 139 mg/dL (74-106); POTASSIUM - SERUM 4.2 mmol/L (3.5-5.1); PRO BNP 10259 pg/mL (0-125); PROTEIN - SERUM 6.2 g/dL (6.4-8.2); SODIUM 140 mmol/L (136-145); UREA NITROGEN 15 mg/dL (7-18); eGFR NON AFRICAN AMERICAN 88 mL/min (90-120)
[2019-12-11] MEDS ORDERED: COREG 3.1253.125 MG PO (10:46)
[2019-12-11] MEDS ORDERED: ENTRESTO 24 MG1 EACH PO (10:47)
--- NOTE | 2019-12-11 11:33 | MORECARE ---
CASE MANAGEMENT DISCHARGE SUMMARY PATIENT: NANCY MAR UNIT: [id number] ADM DATE: 12/07/19 AGE: 69 : 54 SEX: F ROOM/BED: D.6412 AUTHOR: HALEY ALLEN PHYSICIAN: REFERRING PHYSICIAN: JU CLAYTON MD DATE OF SERVICE: 12/11/19 Discharge Plan Patient Name: NANCY MAR Facility: [facility]:[place] : 1950 Planned Disposition: Home Anticipated Discharge Date: Discharge Date: Expected LOS: Initial Reviewer: [email or web address] Initial Review Date: 12/11/2019 Generated: 12/11/19 12:33 pm Comments DCP- Discharge Planning Updated by [email or web address]: Kinza Marie on 12/11/19 10:[address] Patient Name: NANCY MAR Admission Status: ER Accout number: [id number] Admission Date: 12-07-2019 : 1950 Admission Diagnosis: Attending: JU CLAYTON Current LOS: 4 Anticipated DC Date: Planned Disposition: Home Primary Insurance: MEDICARE A & B Discharge Planning Comments: CM met with patient to complete initial dc planning assessment. CM educated patient on the CM role and verbal consent given by patient to complete assessment. Patient lives at home with her spouse. At discharge patient plans to return and feels this is a safe discharge. CM discussed availability of home health, rehab services, and medical equipment. Patient denied known discharge needs at this time. RT to do a walk test. She is on room oxygen now and states they have already done one and it was 98%, I will get the documentation. CM will continue to follow and will assist as needed with dc plans/needs. Web Producer: Kinza Marie DCPIA - Discharge Planning Initial Assessment Updated by [email or web address]: Kinza Marie on 12/11/19 11:30 am * Is the patient Alert and Oriented? Yes * How many steps to enter\exit or inside your home? 3x3 W/RAIL * PCP Dr[facility] * Pharmacy [facility] on [place] * Preadmission Environment Home with Family * ADLs Independent * Equipment None * List name and contact numbers for known caregivers / representatives who currently or will assist patient after discharge: Garth godfrey - [phone] * Verbal permission to speak to the caregivers and representatives has been obtained from the patient. Yes * Community resources currently utilized None * Additional services required to return to the preadmission environment? No * Can the patient safely return to the preadmission environment? Yes * Has this patient been hospitalized within the prior 30 days at any hospital? No Coverage Notice Reviewer: [email or web address] Homar Marie Notice Issued Date-Time: 12/11/2019 11:32 Notice Type: IM Discharge Notice Notice Delivered To: Patient Relationship to Patient: Self Shop Mechanic Helper Name: Delivery Method: HAND - Hand Delivered Mariana Days: Prior Verbal Notification: Recipient Understood Notice: Yes Recipient Signature: Yes Med Rec Note Co-signed by Attending: Coverage Notice Comment: IMM explained, signed, given, copy placed in MR Patient Name: NANCY MAR Page [id number] at 1133 All edits/amendments must be made on the electronic document DICTATION DATE: 12/11/19 113 ARTIFICIAL PEARL MAKER: COOPER 12/11/19 1133 RPT#: [id number] DC DATE: STATUS: ADM IN [facility] [address] [place] [address] END OF REPORT
[2019-12-11 12:05] VITALS: BP 145/89
--- NOTE | 2019-12-11 13:27 | NUR ---
D/C INSTRUCTIONS REVIEWED WITH PT. VERBALIZED UNDERSTANDING. LEFT VIA WHEELCHAIR WITH ALL BELONGINGS TO PERSONAL VEHICLE.
--- NOTE | 2019-12-11 13:54 | MORECARE ---
CASE MANAGEMENT DISCHARGE SUMMARY PATIENT: NANCY MAR UNIT: [id number] ADM DATE: 12/07/19 AGE: 69 : 54 SEX: F ROOM/BED: D.0720 AUTHOR: HALEY ALLEN PHYSICIAN: REFERRING PHYSICIAN: JU CLAYTON MD DATE OF SERVICE: 12/11/19 Discharge Plan Patient Name: NANCY MAR Facility: [facility]:[place] : 1950 Planned Disposition: Home Anticipated Discharge Date: Discharge Date: 12/11/2019 Expected LOS: 0 Initial Reviewer: [email or web address] Initial Review Date: 12/11/2019 Generated: 12/11/19 2:53 pm Comments DCP- Discharge Planning Updated by [email or web address]: Kinza Marie on 12/11/19 10:[address] Patient Name: NANCY MAR Admission Status: ER Accout number: [id number] Admission Date: 12-07-2019 : 1950 Admission Diagnosis: Attending: JU CLAYTON Current LOS: 4 Anticipated DC Date: Planned Disposition: Home Primary Insurance: MEDICARE A & B Discharge Planning Comments: CM met with patient to complete initial dc planning assessment. CM educated patient on the CM role and verbal consent given by patient to complete assessment. Patient lives at home with her spouse. At discharge patient plans to return and feels this is a safe discharge. CM discussed availability of home health, rehab services, and medical equipment. Patient denied known discharge needs at this time. RT to do a walk test. She is on room oxygen now and states they have already done one and it was 98%, I will get the documentation. CM will continue to follow and will assist as needed with dc plans/needs. Auto Appraiser: Kinza Marie DCPIA - Discharge Planning Initial Assessment Updated by [email or web address]: Kinza Marie on 12/11/19 11:30 am * Is the patient Alert and Oriented? Yes * How many steps to enter\exit or inside your home? 3x3 W/RAIL * PCP Dr. Meadows[facility] * Pharmacy [facility] on [place] * Preadmission Environment Home with Family * ADLs Independent * Equipment None * List name and contact numbers for known caregivers / representatives who currently or will assist patient after discharge: Garth godfrey [phone] * Verbal permission to speak to the caregivers and representatives has been obtained from the patient. Yes * Community resources currently utilized None * Additional services required to return to the preadmission environment? No * Can the patient safely return to the preadmission environment? Yes * Has this patient been hospitalized within the prior 30 days at any hospital? No Coverage Notice Reviewer: [email or web address] Homar Marie Notice Issued Date-Time: 12/11/2019 11:32 Notice Type: IM Discharge Notice Notice Delivered To: Patient Relationship to Patient: Self Mailing Manager Name: Delivery Method: HAND - Hand Delivered Mariana Days: Prior Verbal Notification: Recipient Understood Notice: Yes Recipient Signature: Yes Med Rec Note Co-signed by Attending: Coverage Notice Comment: IMM explained, signed, given, copy placed in MR Last DP export: 12/11/19 10:33 a Patient Name: NANCY MAR Page [id number] at 1354 All edits/amendments must be made on the electronic document DICTATION DATE: 12/11/19 1353 STAVE JOINTER: COOPER 12/11/19 1353 RPT#: [id number] DC DATE:12/11/19 STATUS: DIS IN [facility] [address] [place] [address] END OF REPORT
[2019-12-12 13:11] LABS: IMMUNOGLOBULIN E 44 IU/mL (6-495)
== END 2019-12-11 13:28 | disposition home or self-care (01) | DRG 280 ==
LOC: D.ER 00:07 → D.M2 03:57
PROVIDERS: Family Medicine; Internal Medicine Pulmonary Disease; ADMIT Emergency Medicine; ATTEND Emergency Medicine
DX: I11.0 Hypertensive heart disease with heart failure (principal); I21.4 Non-ST elevation (NSTEMI) myocardial infarction; J18.9 Pneumonia, unspecified organism; C92.10 Chronic myeloid leukemia, BCR/ABL-positive, not having achieved remission; I50.23 Acute on chronic systolic (congestive) heart failure; I25.10 Atherosclerotic heart disease of native coronary artery without angina pectoris; J43.9 Emphysema, unspecified; I08.1 Rheumatic disorders of both mitral and tricuspid valves; E87.6 Hypokalemia; M32.9 Systemic lupus erythematosus, unspecified; E78.5 Hyperlipidemia, unspecified; K21.9 Gastro-esophageal reflux disease without esophagitis; M47.9 Spondylosis, unspecified; I73.9 Peripheral vascular disease, unspecified; I25.5 Ischemic cardiomyopathy; Z87.891 Personal history of nicotine dependence

== ENCOUNTER → 2020-06-09 18:39 | Outpatient (CLI) | payer MEDICARE, OTHER ==
[2019-12-07 13:38] VITALS: BMI 25.0
[~2020-06-09 18:39] MED LIST changes: +COREG 3.1253.125 MG PO; +ENTRESTO 24 MG1 EACH PO
[2020-06-09 19:43] LABS: ANION GAP 16.8 mmol/L (8-16); CALCIUM 8.8 mg/dL (8.5-10.1); CARBON DIOXIDE 26.8 mmol/L (21.0-32.0); POTASSIUM - SERUM 4.6 mmol/L (3.5-5.1)
== END | disposition home or self-care (01) ==
LOC: D.LABREF 18:39
PROVIDERS: ATTEND Family Medicine
DX: I10 Essential (primary) hypertension (principal)